=== PATIENT | male | born 1940 | race Caucasian/White ===

== ENCOUNTER → 2017-04-11 | Outpatient (REF) | payer MEDICARE ==
[2017-04-11 14:59] LABS: ALBUMIN 3.7 GM/DL (3.2-5.2); ALBUMIN/GLOBULIN RATIO 1.37 (1.00-1.93); BILIRUBIN,TOTAL 0.4 MG/DL (0.2-1.0); CALCIUM LEVEL 8.9 MG/DL (8.8-10.2); CREATININE FOR GFR 1.36 MG/DL (0.70-1.30); GLOMERULAR FILTRATION RATE 54.4 (>42); POTASSIUM SERUM 3.7 MEQ/L (3.5-5.1); TOTAL PROTEIN 6.4 GM/DL (6.4-8.2)
== END ==
LOC: M SFHCLACO 09:49
PROVIDERS: ATTEND Physician Assistant
DX: E78.2 Mixed hyperlipidemia (principal); E11.9 Type 2 diabetes mellitus without complications; I10 Essential (primary) hypertension

== ENCOUNTER → 2017-10-29 | Outpatient (REF) | payer MEDICARE ==
[2017-10-29 15:18] LABS: ALBUMIN 3.8 GM/DL (3.2-5.2); ALBUMIN/GLOBULIN RATIO 1.23 (1.00-1.93); ALKALINE PHOSPHATASE 78 U/L (45-117); ALT/SGPT 28 U/L (12-78); ANION GAP 6 MEQ/L (8-16); AST/SGOT 14 U/L (7-37); BILIRUBIN,TOTAL 0.5 MG/DL (0.2-1.0); BLOOD UREA NITROGEN 20 MG/DL (7-18); CALCIUM LEVEL 8.9 MG/DL (8.8-10.2); CARBON DIOXIDE LEVEL 31 MEQ/L (21-32); CHLORIDE LEVEL 101 MEQ/L (98-107); CHOLESTEROL LEVEL 116 MG/DL (<200); CHOLESTEROL RISK RATIO 3.052 (<5); CREATININE FOR GFR 1.28 MG/DL (0.70-1.30); GLOMERULAR FILTRATION RATE 58.2 (>42); GLUCOSE, FASTING 113 MG/DL (70-100); HDL CHOLESTEROL 38 MG/DL (>40); LDL CHOLESTEROL 47.4 MG/DL (<100); NON-HDL-C 78 MG/DL; POTASSIUM SERUM 3.6 MEQ/L (3.5-5.1); PSA SCREENING 2.46 NG/ML (< 4.0); SODIUM LEVEL 138 MEQ/L (136-145); TOTAL PROTEIN 6.9 GM/DL (6.4-8.2); TRIGLYCERIDES LEVEL 153 MG/DL (<150)
[2017-10-29 15:25] LABS: ESTIMATED AVERAGE GLUCOSE 160 MG/DL (60-110); HEMOGLOBIN A1c 7.2 %
== END ==
LOC: M SFHCLACO 08:43
DX: Z12.5 Encounter for screening for malignant neoplasm of prostate (principal); I10 Essential (primary) hypertension; E11.9 Type 2 diabetes mellitus without complications; E78.2 Mixed hyperlipidemia
CPT/HCPCS: 80053

== ENCOUNTER → 2021-01-11 | Outpatient (REF) | payer MEDICARE ==
[2021-01-11 14:36] LABS: HEMOGLOBIN A1c 6.5 %
[2021-01-11 14:52] LABS: ALBUMIN 3.5 GM/DL (3.2-5.2); ALT/SGPT 22 U/L (12-78); BILIRUBIN,TOTAL 0.3 MG/DL (0.2-1.0); BLOOD UREA NITROGEN 23 MG/DL (7-18); CALCIUM LEVEL 8.9 MG/DL (8.8-10.2); CARBON DIOXIDE LEVEL 28 MEQ/L (21-32); CHLORIDE LEVEL 111 MEQ/L (98-107); CHOLESTEROL LEVEL 121 MG/DL (<200); CHOLESTEROL RISK RATIO 2.469 (<5); CREATININE FOR GFR 1.05 MG/DL (0.70-1.30); GLOMERULAR FILTRATION RATE > 60.0 (>42); GLUCOSE, FASTING 137 MG/DL (70-100); HDL CHOLESTEROL 49 MG/DL (>40); LDL CHOLESTEROL 43 MG/DL (<100); NON-HDL-C 72 MG/DL; POTASSIUM SERUM 4.6 MEQ/L (3.5-5.1); SODIUM LEVEL 143 MEQ/L (136-145); TOTAL PROTEIN 6.4 GM/DL (6.4-8.2); TRIGLYCERIDES LEVEL 145 MG/DL (<150)
== END ==
LOC: M SFHCADAM 10:34
PROVIDERS: ATTEND Physician Assistant
DX: E78.2 Mixed hyperlipidemia (principal); I10 Essential (primary) hypertension; E11.9 Type 2 diabetes mellitus without complications

== ENCOUNTER 2021-04-25 00:20 | Inpatient (IN) | payer MEDICARE ==
[2021-04-25] VITALS (63 sets, daily range): BP systolic 146–210; BP diastolic 66–123
[~2021-04-25] VITALS: Ht 175.3 cm; Wt 98.5 kg
[2021-04-25] MEDS ORDERED: CLON0.3T PO (00:39)
[2021-04-25] MEDS ORDERED: METO1TAB32 PO ×2 (00:39→06:02)
[2021-04-25] MEDS ORDERED: METF10004 PO (00:39)
[2021-04-25] MEDS ORDERED: HYDR-3911 PO ×2 (00:39→06:02)
[2021-04-25] MEDS ORDERED: LABETALOL 100MG/20ML VIAL IV STA (01:00)
[2021-04-25] MEDS ORDERED: NS 500 ML IV ONE (01:00)
[2021-04-25] MEDS ORDERED: ISOVUE-370 76% 100ML VIAL As Ordered ONE ×2 (01:04→18:17)
[2021-04-25] MEDS ORDERED: ONDANSETRON 4MG/2ML VIAL IV ONE (01:10)
[2021-04-25 01:19] LABS: BASO # 0.1 10^3/uL (0.0-0.2); BASO % 0.9 % (0.0-1.0); EOS % 0.3 % (0.0-3.0); LYMPH # 1.1 10^3/uL (1.5-5.0); LYMPH % 7.5 % (24.0-44.0); MEAN CORPUSCULAR HEMOGLOBIN 25.4 pg (27.0-33.0); MEAN CORPUSCULAR HGB CONC 31.6 g/dl (32.0-36.5); MEAN CORPUSCULAR VOLUME 80.3 fl (80.0-96.0); MONO # 0.3 10^3/uL (0.0-0.8); MONO % 2.4 % (2.0-8.0); NEUTROPHILS # 12.3 10^3/uL (1.5-8.5); NEUTROPHILS % 88.5 % (36.0-66.0); PLATELET COUNT, AUTOMATED 246 10^3/uL (150-450); RED BLOOD COUNT 4.73 10^6/uL (4.30-6.10); WHITE BLOOD COUNT 13.9 10^3/uL (4.0-10.0)
[2021-04-25] MEDS ORDERED: cloNIDine 0.1MG TABLET PO ONE (01:30)
[2021-04-25 01:59] LABS: ALBUMIN 4.2 GM/DL (3.2-5.2); BILIRUBIN,DIRECT 0.2 MG/DL (0.0-0.2); BILIRUBIN,TOTAL 0.5 MG/DL (0.2-1.0); CK-MB VALUE MASS 2.2 NG/ML (<3.6); MB/CK RELATIVE INDEX 2.75 (< OR =4); TOTAL PROTEIN 7.6 GM/DL (6.4-8.2); TROPONIN I 0.04 NG/ML (< 0.10)
--- NOTE | 2021-04-25 02:09 | REPVR ---
PROCEDURE INFORMATION: Exam: CTA Chest With Contrast Exam date and time: 04/25/2021 1:12 AM Age: 80 years old Clinical indication: Pain; Other: Chest; Additional info: Abd pain, HX of taa, R/O dissection TECHNIQUE: Imaging protocol: Computed tomographic angiography of the chest with contrast. 3D rendering (Not supervised by radiologist): MIP and/or 3D reconstructed images were created by the technologist. Radiation optimization: All CT scans at this facility use at least one of these dose optimization techniques: automated exposure control; mA and/or kV adjustment per patient size (includes targeted exams where dose is matched to clinical indication); or iterative reconstruction. Contrast material: ISO; Contrast volume: 100 ml; Contrast route: INTRAVENOUS (IV); COMPARISON: No relevant prior studies available. FINDINGS: Pulmonary arteries: The main pulmonary artery measures 31 mm. No gross central pulmonary embolism is identified. Aorta: The ascending thoracic aorta measures 34 mm. No gross or obvious aortic dissection is identified distal to the mid arch. Artifact and image degradation precludes detailed evaluation of the ascending thoracic aorta. There is some soft plaque with ulcerations in the descending thoracic aorta Thyroid: Heterogeneous thyroid lobes. Lungs: Motion artifact in the lungs with image degradation. Slight pulmonary interstitial prominence with minimal infiltrate in the lateral right lower lobe. Calcified granuloma in the posterolateral right upper lobe. Minimal fibro-atelectatic change and slight interstitial coarsening in the posterior lower lobes. Pleural spaces: Unremarkable. No pneumothorax. No pleural effusion. Heart: Unremarkable. No cardiomegaly. No pericardial effusion. Lymph nodes: Unremarkable. No enlarged lymph nodes. Bones/joints: Unremarkable. No acute fracture. Soft tissues: Lipoma within the left subscapularis muscle. IMPRESSION: 1. Slight pulmonary interstitial prominence with minimal infiltrate in the lateral right lower lobe and minimal fibro-atelectatic change and interstitial coarsening in the posterior lower lobes bilaterally. 2. Otherwise negative CTA chest. There is motion artifact in the lungs with image degradation. No gross central pulmonary embolism is identified. 3. There is irregular soft plaque with ulcerations in the descending thoracic aorta. Motion and/or beam hardening artifact precludes detailed evaluation of the ascending thoracic aorta and subtle aortic dissection is not excluded on this basis although no gross or obvious dissection is seen. Not grossly ruled in does not mean ruled out. Electronically signed by: Markel Babin On 04/25/2021 02:08:51 AM
--- NOTE | 2021-04-25 02:18 | REPVR ---
PROCEDURE INFORMATION: Exam: CTA Abdomen and Pelvis With Contrast Exam date and time: 04/25/2021 1:00 AM Age: 80 years old Clinical indication: Abdominal pain; Generalized; Additional info: Abd pain, distension, HTN, tachycardia, R/O dissection TECHNIQUE: Imaging protocol: Computed tomographic angiography of the abdomen and pelvis with contrast material. 3D rendering (Not supervised by radiologist): MIP and/or 3D reconstructed images were created by the technologist. Radiation optimization: All CT scans at this facility use at least one of these dose optimization techniques: automated exposure control; mA and/or kV adjustment per patient size (includes targeted exams where dose is matched to clinical indication); or iterative reconstruction. Contrast material: ISO; Contrast volume: 100 ml; Contrast route: INTRAVENOUS (IV); COMPARISON: No relevant prior studies available. FINDINGS: Aorta: There is mild calcification of the abdominal aorta with extension into the iliac arteries. No abdominal aortic aneurysm or dissection. Celiac trunk and mesenteric arteries: The celiac artery and branches appear normal. The SMA and branches appear normal. The APARNA is patent. Renal arteries: There is a single patent right renal artery and 3 patent left renal arteries. Right iliac arteries: No occlusion or significant stenosis. Left iliac arteries: No occlusion or significant stenosis. Liver: No mass. Gallbladder and bile ducts: Unremarkable. No calcified stones. No ductal dilation. Pancreas: Unremarkable. No mass. No ductal dilation. Spleen: Unremarkable. No splenomegaly. Adrenal glands: Unremarkable. No mass. Kidneys and ureters: Right renal peripelvic cyst measuring 2.9 x 2.6 x 3.5 cm with a Hounsfield measurement of -9 consistent with a simple cyst. No follow-up imaging is recommended. Stomach and bowel: Small mural lipoma in the proximal duodenal sweep measuring 9 mm. Mobile cecum. Mild stool and gas throughout much of the colon. Sigmoid diverticulosis without diverticulitis. Appendix: A normal appendix is seen. Intraperitoneal space: Unremarkable. No free air. No significant fluid collection. Lymph nodes: Unremarkable. No enlarged lymph nodes. Urinary bladder: There is a De Oliveira catheter in the bladder which is collapsed. No mass. Reproductive: There is moderate enlargement of the prostate. Bones/joints: No acute fracture. No dislocation. Soft tissues: Small bilateral fat filled inguinal hernias. IMPRESSION: 1. Moderate prostatic enlargement with De Oliveira catheter in the bladder. 2. Sigmoid diverticulosis without diverticulitis. 3. Small bilateral fat filled inguinal hernias. 4. Otherwise negative CTA abdomen/pelvis. No abdominal aortic aneurysm or dissection. Electronically signed by: Markel Babin On 04/25/2021 02:18:21 AM
[2021-04-25] MEDS ORDERED: hydrALAZINE 20MG/ML 1ML VIAL (J0360 PER 20MG) IV ONE (03:25)
[2021-04-25] MEDS ORDERED: GLUCAGON INJ 1MG VIAL SC PRN (03:50)
[2021-04-25] MEDS ORDERED: DEXTROSE 50% 50 ML SYRINGE IV PRN (03:50)
[2021-04-25] MEDS ORDERED: GLUCOSE 4GM CHEW TABLET PO PRN (03:50)
[2021-04-25] MEDS ORDERED: ACETAMINOPHEN TAB 650MG DOSE (2X325MG) PO PRN (03:50)
--- NOTE | 2021-04-25 04:18 | HPEPDOC ---
General Date of Admission 04/25/21 Date of Service: Apr 25, 2021 Primary Care Physician: Chelsea Navarro PA-C, LAC Chief Complaint The patient is a 80-year-old male admitted with a reason for visit of Belly Pain/Rectal Pain. Source: Patient History of Present Illness This is a 80-year-old man, who follows with the [facility], with significant history of hypertension, diabetes, muscular dystrophy, gout, generalized anxiety disorder, BPH, hypogonadism, allergic rhinitis, CAD status post cardiac stents, and chronic back pain who presents with complaints of abdominal pain. Patient reports that he has been constipated for 3 to 4 days. When he started having severe generalized abdominal pain today he was afraid he had a fecal impaction and he called EMS to come to the hospital. Upon arrival patient was found to be hypertensive to 257/134. Patient afebrile, not tachycardic or tachypneic - tolerating room air. Of note, initial lab work revealed elevated leukocytosis 13.9, lactic 4. Patient was also found to be with urinary retention 900 mL and Nieves placed. UA pending. Patient reports he felt immense relief from the Nieves placement and abdominal pain receded. He still endorses constipation and given his hypertension -CTA chest and abdomen pelvis were ordered and both nonacute. During examination despite clonidine p.o., hydralazine and labetalol IV patient remains hypertensive at 242/116. He reports that because he felt unwell and based on timing he had not taken his nighttime medications last night. Pt denies lopez, sinus congestion, sore throat, productive cough, sob, palpitations, chest pain, n/v/d, weakness, sensory changes or syncope. Patient does have notable tremors he reports these are at baseline. Patient describes difficulty doing fine motor skills with his hand at baseline such as writing because of his "DTs" when asked if he drinks alcohol he denies he describes his tremors related to his muscular dystrophy as delirium tremens. Patient denies alcohol use. Patient is a former smoker and he quit in . He reports that he does not require any breathing treatments or has cough at baseline. He does endorse hearing aids and he is notably hard of hearing and somewhat poor historian. Patient will be admitted for further evaluation management of presenting concerns Home Medications Scheduled Clonidine HCl (Clonidine HCl) 0.3 Mg Tablet, 0.3 MG PO BID, (Reported) Hydralazine HCl (Hydralazine HCl) Unknown Strength Tablet, Unknown Dose PO QID, (Reported) Metformin HCl (Metformin HCl) 1,000 Mg Tablet, 1,000 MG PO BID, (Reported) Metoprolol Succinate (Metoprolol Succinate) Unknown Strength Tab.er.24h, Unknown Dose PO DAILY, (Reported) Allergies Coded Allergies: No Known Allergies (Unverified , 04/25/21) Past Medical History Medical History hypertension, hemorrhoids, Jaymwzg-Idrmi-Ftqnd muscular atrophy , bradycardia , bilateral carotid artery stenosis, muscular dystrophy, gout, generalized anxiety disorder, diabetes, history of melanoma, BPH, hypogonadism, allergic rhinitis, CAD status post cardiac stents, hard of hearing, diabetic neuropathy, and chronic back pain Surgical History Cardiac stents, lower back surgery 1998 Family History Fatherdeceased 80 years from prostate cancer, motherhypertension Social History * Smoker: former Smoker (Quit 79) Alcohol: Denies Drugs: denies Recent Travel/Sick Contacts: Denies: Recent travel, Recent sick contacts Psychosocial History: Anxiety Patient reports he lives alone. He uses hearing aids but did not bring them with him. He does ambulate with a cane at baseline. He does endorse some foot drop related to his muscular dystrophy. A-FIB/CHADSVASC A-FIB History Current/History of A-Fib/PAF?: No Current PO Anticoag Therapy: No Review of Systems Constitutional: Denies: Chills, Fever, Night Sweats Eyes: Denies: Pain, Vision change ENT: Denies: Head Aches, Ear Pain, Dysphagia Skin: Denies: Rash, Lesions, Breakdown Pulmonary: Denies: Dyspnea, Cough Cardiovascular: Denies: Chest Pain, Palpitations, Orthopnea, Paroxysmal Noc. Dyspnea, Lt Headedness Gastrointestinal: Reports: Abdominal Pain, Constipation; Denies: Nausea, Vomiting, Diarrhea Genitourinary: Denies: Dysuria, Frequency, Incontinence, Retention Hematologic: Denies: Bruising, Bleeding Excessively Musculoskeletal: Denies: Neck Pain, Back Pain, Joint Pain, Muscle Pain, Spasms Neurological: Denies: Weakness, Numbness, Change in speech, Confusion Psych: Reports: Mood Normal; Denies: Depression, Memory Issues Physical Examination General Exam: Positive: Alert, Cooperative, No Acute Distress Eye Exam: Positive: PERRLA, Conjunctiva & lids normal, EOMI; Negative: Sclera icteric ENT Exam: Positive: Atraumatic, Mucous membr. moist/pink, Pharynx Normal, Other ENT (RED CL[place]) Neck Exam: Positive: Supple; Negative: JVD, thyromegaly Chest Exam: Positive: Clear to auscultation, Normal air movement Heart Exam: Positive: Rate Normal, Regular Rhythm, Normal S1, Normal S2; Negative: Murmurs, Rubs Telemetry: Positive: No significant arrhythmia Abdomen Exam: Positive: Normal bowel sounds, Soft; Negative: Tenderness, Hepatospenomegaly Extremity Exam: Positive: Normal pulses; Negative: Clubbing, Cyanosis, Edema Skin Exam: Positive: Nl turgor and temperature; Negative: Breakdown, Lesion Neuro Exam: Positive: Normal Gait, Normal Speech, Cranial Nerves 3-12 NL, Reflexes 2+ Psych Exam: Positive: Mental status NL, Mood NL, Oriented x 3 Other physical findings NIEVES, YELLOW URINE TO BAG Vital Signs Vital Signs Date Time Temp Pulse Resp B/P (MAP) Pulse Ox O2 Delivery O2 Flow Rate FiO2 04/25/21 03:38 245/119 (161) 04/25/21 03:35 81 99 Room Air 04/25/21 01:19 99.6 04/25/21 00:35 18 Laboratory Data Labs 24H Laboratory Tests 2 04/25/21 01:12: Total Bilirubin 0.5, Direct Bilirubin 0.2, Aspartate Amino Transf (AST/SGOT) 14, Alanine Aminotransferase (ALT/SGPT) 18, Alkaline Phosphatase 91, Total Creatine Kinase 80, Creatine Kinase MB 2.2, Creatine Kinase MB Relative Index 2.75, Troponin I 0.04, Total Protein 7.6, Albumin 4.2, Albumin/Globulin Ratio 1.2, Lipase 164 04/25/21 01:14: Immature Granulocyte % (Auto) 0.4, Neutrophils (%) (Auto) 88.5H, Lymphocytes (%) (Auto) 7.5L, Monocytes (%) (Auto) 2.4, Eosinophils (%) (Auto) 0.3, Basophils (%) (Auto) 0.9, Neutrophils # (Auto) 12.3H, Lymphocytes # (Auto) 1.1L, Monocytes # (Auto) 0.3, Eosinophils # (Auto) 0.0, Basophils # (Auto) 0.1, Nucleated Red Blood Cells % (auto) 0.0, Lactic Acid Level 4.0*H 04/25/21 01:23: POC Glucose (Misc Panel) 157H, POC Sodium (Misc Panel) 140, POC Potassium (Misc Panel) 4.0, POC Chloride (Misc Panel) 106, POC Total CO2 (Misc Panel) 21.0L, POC Blood Urea Nitrogen (Misc Panel 19, POC Ionized Calcium (Misc Panel) 4.6, POC Creatinine (Misc Panel) 1.3, POC Hematocrit (Misc Panel) 35.0L 04/25/21 03:33: Urine Color STRAW, Urine Appearance CLEAR, Urine pH 7.0, Urine Specific [place] 1.016, Urine Protein 1+H, Urine Glucose (UA) 1+H, Urine Ketones TRACEH, Urine Blood 1+H, Urine Nitrite NEGATIVE, Urine Bilirubin NEGATIVE, Urine Urobilinogen 0.2, Urine Leukocyte Esterase NEGATIVE, Urine WBC (Auto) 0, Urine RBC (Auto) 10H, Urine Hyaline Casts (Auto) 0, Urine Bacteria (Auto) NEGATIVE, Urine Squamous Epithelial Cells 0, Urine Sperm (Auto) CBC/BMP Laboratory Tests 04/25/21 01:14 Assessment/Plan 1. Hypertensive urgency: In setting of patient having not taken home medications which would be hydralazine, long-acting metoprolol, losartan and clonidine (these are noted in cardiac note from December 2020). -Patient to be monitored on PCU, telemetry -IV labetalol and hydralazine given in ED -Home medications to be reordered, likely possible rebound hypertension without clonidine contributing to elevated BP. -Consider nitroprusside drip pending patient response to resuming patient oral medications. RN made aware regarding plan for BP recheck 1 hour post oral administration and to notify provider blood pressure to determine if need of nitroprusside drip. -A.m. labs -Consider differential, CT abdomen pelvis and CT chest nonacute. CT head will be obtained once 8 hours passes from contrast timing. 2. Leukocytosis and lactic acidosis: Patient afebrile, not tachycardic or tachypneic. CT abdomen pelvis nonacute, CT chest with right lower lobe fibroatelectatic changes but did not describe infectious etiology. Patient does take Metformin. -Will obtain blood cultures. -Metformin on hold -patient has been bolused in ED recheck lactic. -Check procalcitonin -Follow-up UA and labs and consider empiric coverage. 3. Diabetes: -Check A1c. -Metformin on hold given contrast and lactic acidosis. -Monitor patient blood glucose ACHS. -Sliding scale insulin. -A.m. labs. 4. Urinary retention patient with BPH: Patient found with urinary retention 900 mL. Responded well to Nieves insertion. -Continue home hytrin. -Continue Nieves for now -UA pending. -Consider urological consult. 5. Hemorrhoids and constipation: -Monitor I's and O's -Plan for bowel regimen Colace, MiraLAX and as needed Senokot -Patient reports that he has had issues with suppositories and requests no suppositories. -When asked regarding rectal creams as he did describe some rectal discomfort he declined. 6. Diverticulosis without diverticulitis: Patient reports his abdominal pain resolved after Nieves placement. CT abdomen pelvis without evidence of diverticulitis. Continue monitoring. 7. Diabetic neuropathy, Gdmelfl-Anrhr-Wffwc muscular atrophy and muscular dystrophy: Fall precautions. 8. CAD with left bundle branch block: In setting of hypertensive urgency. Echo completed December 2020 showed EF 55 to 65% with mild diastolic dysfunction. Records in [facility] from [facility] -Telemetry monitoring -continue Asa, Plavix, atorvastatin. 9. NORBERTO: Amitriptyline held given QTC. Recheck EKG and consider resuming accordingly. 10. CT finding: Aortic plaque: Outlines as nonacute, but did not rule in or rule out subtotal aortic dissection. Lower suspicion given patient clinical exam. Continue to monitor and consider further imaging should patient clinical presentation change. 11. QT prolongation: QTC 543. Avoid QT prolonging agents as able. Monitor patient on telemetry repeat EKG later today. DVT prophylaxis: SCDs CODE STATUS: DNR/DNI. Patient confirms with [facility] Disposition planning: Home once blood pressure stable Plan / VTE VTE Prophylaxis Ordered?: Yes ANISH VELASCO NP Apr 25, 2021 04:12
[2021-04-25 05:00] LABS: RSV AMPLIFICATION NEGATIVE (NEGATIVE)
[2021-04-25 05:01] LABS: HEMOGLOBIN A1c 6.8 %
[2021-04-25] MEDS ORDERED: METOPROLOL SUCC *XL* 25MG TAB (TopROL *XL*) PO SCH (05:05)
[2021-04-25] MEDS ORDERED: LOSARTAN 50MG TABLET PO SCH (05:05)
[2021-04-25] MEDS ORDERED: SENNA 8.6 MG TAB (SENOKOT) PO PRN (05:05)
--- NOTE | 2021-04-25 05:14 | ECGEPIP ---
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
[2021-04-25 05:20] LABS: CHOLESTEROL RISK RATIO 2.706 (<5); MAGNESIUM LEVEL 1.4 MG/DL (1.8-2.4); THYROID STIMULATING HORMONE 0.525 uIU/ML (0.358-3.740)
[2021-04-25] MEDS: **hydrALAZINE** 50 MG TAB PO SCH ×3 (06:01→21:26)
[2021-04-25] MEDS ORDERED: CLOP75TA2 PO (06:02)
[2021-04-25] MEDS ORDERED: FISH1000 PO (06:02)
[2021-04-25] MEDS ORDERED: HYDR-4517 PO (06:02)
[2021-04-25] MEDS ORDERED: LOSA100T50 PO (06:02)
[2021-04-25] MEDS ORDERED: ASPI-161 PO (06:02)
[2021-04-25] MEDS ORDERED: CITA40TA6 PO (06:02)
[2021-04-25] MEDS ORDERED: VITMTA PO (06:02)
[2021-04-25] MEDS ORDERED: ATOR40TA75 PO (06:02)
[2021-04-25] MEDS ORDERED: ALLO300T2 PO (06:02)
[2021-04-25] MEDS ORDERED: TERA10CA3 PO (06:02)
[2021-04-25] MEDS ORDERED: AMIT50TA PO (06:02)
[2021-04-25] MEDS ORDERED: HOME MED LIST COMPLETE! XX SCH (06:05)
[2021-04-25] MEDS: TERAZOSIN 5MG CAPSULE PO SCH ×2 (06:09→21:31)
[2021-04-25] MEDS: HumaLOG INSULIN (NovoLOG) PER UNIT SC SCH ×3 (07:30→17:25)
[2021-04-25] MEDS: niCARdipine IV 40 MG in IV 1 EA IV SCH ×3 (07:37→22:45)
[2021-04-25] MEDS: MAG SULF 1GM/100ML (MAG RUN) 1 GM in IV 1 EA IV SCH ×2 (08:12→09:18)
[2021-04-25] MEDS ORDERED: MIRALAX *UNIT DOSE* 17GM PACKET PO SCH (09:00)
[2021-04-25] MEDS ORDERED: cloNIDine 0.1MG TABLET PO SCH (09:00)
[2021-04-25] MEDS: ASPIRIN 81 MG CHEW TABLET PO SCH (09:18)
[2021-04-25] MEDS: DOCUSATE SODIUM 100MG CAPSULE PO SCH ×2 (09:19→21:28)
[2021-04-25] MEDS: CLOPIDOGREL 75 MG TAB PO SCH (09:19)
--- NOTE | 2021-04-25 09:33 | ECGEPIP ---
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 Decreased heart rate and LEFT BUNDLE BRANCH BLOCK no longer present compared with 04/25/2021. Electronically Signed on 04-25-2021 9:33:19 EDT by Gunner Higginbotham
[2021-04-25] MEDS ORDERED: FLEET ENEMA PR ONE (12:15)
[2021-04-25] MEDS: **hydrALAZINE HCL** 25 MG TAB PO SCH ×2 (12:42→17:16)
[2021-04-25] MEDS ORDERED: CALCIUM CARBONATE 500 MG CHEW U/D PO ONE (13:00)
--- NOTE | 2021-04-25 13:16 | REP ---
INDICATION: abd pain. COMPARISON: None. TECHNIQUE: KUB: 2 portably obtained views presented. FINDINGS: Supine views the abdomen demonstrate formed stool distending the rectum. There is air in the stomach and multiple loops of air-filled mildly prominent small bowel are seen in the central abdomen. There is air in the distal transverse colon and proximal descending colon. Psoas margins are intact. No mass or organomegaly is seen. IMPRESSION: Suggestive of fecal impaction with air filled rectum and distended loops of small and large bowel in the upper abdomen. Otherwise negative. <Electronically signed by Caio Jones > 04/25/21 [id number]
[2021-04-25] MEDS ORDERED: PROCHLORPERAZINE 5 MG TAB (S0183) PO ONE (15:00)
[2021-04-25] MEDS ORDERED: BISACODYL 10 MG SUPP PR ONE (16:30)
[2021-04-25] MEDS ORDERED: MAGNESIUM OXIDE 400MG TAB (MAG-OX) PO ONE (16:30)
[2021-04-25] MEDS ORDERED: METOPROLOL TART 25 MG TABLET PO SCH (18:00)
[2021-04-25] MEDS: NS 1,000 ML IV SCH (18:08)
[2021-04-25 18:26] LABS: ALBUMIN 3.8 GM/DL (3.2-5.2); BILIRUBIN,TOTAL 0.8 MG/DL (0.2-1.0); CALCIUM LEVEL 9.4 MG/DL (8.8-10.2); CREATININE FOR GFR 1.51 MG/DL (0.70-1.30); GLOMERULAR FILTRATION RATE 47.7 (>42); POTASSIUM SERUM 3.2 MEQ/L (3.5-5.1); TOTAL PROTEIN 7.1 GM/DL (6.4-8.2)
[2021-04-25] MEDS ORDERED: SODIUM CHLORIDE 0.9% 1000ML IV ONE (18:30)
--- NOTE | 2021-04-25 18:50 | IPNPDOC ---
Subjective Date Seen The patient was seen on 04/25/21. Subjective Chief Complaint/HPI Patient was seen and examined at bedside this morning. He he had complaints of abdominal pain which he attributed to being constipated as this is happened to him in the past. He also had associated nausea and vomiting. He denies chest pain, palpitations, headaches, blurry vision, and focal deficits. Objective Physical Examination Heart Exam: Negative: Murmurs, Rubs Other physical findings General: Lying in bed, no acute distress Head/Neck/Throat: Trachea midline, mucous membranes moist Eyes: Sclera anicteric, no erythema or discharge appreciated bilaterally Thorax: Normal respiratory effort on room air, lungs clear to auscultation bilaterally, no wheezes/rales/rhonchi Cardiovascular: Tachycardic, regular rhythm, normal S1, S2 Abdomen: Bowel sounds present, mildly distended, tenderness reported diffusely Genitourinary: No CVA tenderness, no Britt in place Musculoskeletal: Moving all extremities, no edema Skin: Warm, dry Neurologic: AAOx3, speech fluent and goal-directed, no focal deficits, grossly intact Assessment /Plan Assessment #Hypertensive emergency -BP greater than 185/105 and patient has acute kidney injury on repeat labs. -Continue with IV nicardipine with goal to reduce SBP no more than 25% in first 3-4 hours, and maintain SBP at 160. -We will resume ambulatory antihypertensive medications except for losartan due to acute kidney injury, in order to titrate off nicardipine drip # #Abnormal CTA of the chest -CT scan of the chest done this morning noted in the impression that patient may have a subtle and possible ascending thoracic aorta dissection that could not be excluded. This was reviewed with the radiologist and there is low suspicion however repeat CT angio or a ZO would be needed. These findings were discussed with the patient and he repeat CT angiography was proposed. He was explained that he does have acute kidney injury and the risk of worsening of his kidney function was positive with repeat CT angiography that would require more time. He was explained that it may also lead to the extent of possibly requiring dialysis. He is willing to accept his risk therefore repeat CT angiography is already been ordered to rule out dissection. #Abdominal pain -CT angiography of the abdomen was negative. Suspect this is secondary to fecal impaction in the setting of his chronic opioid use. Optimize bowel regimen -Surgery team was consulted #Prolonged qtc -repeat ekg in am -avoid qtc prolonging meds #Urinary retention -possibly 2/2 to constipation. He did report some relief in his abdominal pain following a Britt -Maintain britt for now. #Elevated leukocytosis and lactic acid -This is likely reactive to the patient's abdominal pain leading to nausea and vomiting. He was also taking Metformin which can lead to elevate lactic acid. -He remains afebrile, and procalcitonin is within normal limits. We will continue to follow off antibiotics and manage with IV fluids. -Avoid QTC prolonging antiemetics #Diabetes -Hold Metformin. Continue sliding scale, hypoglycemic protocol, and Accu-Cheks every 6 hrs #Depression -Continue with citalopram #BPH -Continue with Terazosin #DVT ppx -heparin subq Plan/VTE VTE Prophylaxis Ordered?: Yes VS, I&O, 24H, Fishbone Vital Signs/I&O Vital Signs Date Time Temp Pulse Resp B/P (MAP) Pulse Ox O2 Delivery O2 Flow Rate FiO2 04/25/21 13:45 95 160/75 (103) 98 Room Air 04/25/21 12:30 98.9 20 I&O- Last 24 Hours up to 6 AM 04/25/21 06:00 Intake Total 500 ml Output Total 700 ml Balance -200 ml Laboratory Data 24H LABS Laboratory Tests 2 04/25/21 01:12: Total Bilirubin 0.5, Direct Bilirubin 0.2, Aspartate Amino Transf (AST/SGOT) 14, Alanine Aminotransferase (ALT/SGPT) 18, Alkaline Phosphatase 91, Total Creatine Kinase 80, Creatine Kinase MB 2.2, Creatine Kinase MB Relative Index 2.75, Troponin I 0.04, Total Protein 7.6, Albumin 4.2, Albumin/Globulin Ratio 1.2, Lipase 164 04/25/21 01:14: Immature Granulocyte % (Auto) 0.4, Neutrophils (%) (Auto) 88.5H, Lymphocytes (%) (Auto) 7.5L, Monocytes (%) (Auto) 2.4, Eosinophils (%) (Auto) 0.3, Basophils (%) (Auto) 0.9, Neutrophils # (Auto) 12.3H, Lymphocytes # (Auto) 1.1L, Monocytes # (Auto) 0.3, Eosinophils # (Auto) 0.0, Basophils # (Auto) 0.1, Nucleated Red Blood Cells % (auto) 0.0, Lactic Acid Level 4.0*H 04/25/21 01:23: POC Glucose (Misc Panel) 157H, POC Sodium (Misc Panel) 140, POC Potassium (Misc Panel) 4.0, POC Chloride (Misc Panel) 106, POC Total CO2 (Misc Panel) 21.0L, POC Blood Urea Nitrogen (Misc Panel 19, POC Ionized Calcium (Misc Panel) 4.6, POC Creatinine (Misc Panel) 1.3, POC Hematocrit (Misc Panel) 35.0L 04/25/21 03:33: Urine Color STRAW, Urine Appearance CLEAR, Urine pH 7.0, Urine Specific [place] 1.016, Urine Protein 1+H, Urine Glucose (UA) 1+H, Urine Ketones TRACEH, Urine Blood 1+H, Urine Nitrite NEGATIVE, Urine Bilirubin NEGATIVE, Urine Urobilinogen 0.2, Urine Leukocyte Esterase NEGATIVE, Urine WBC (Auto) 0, Urine RBC (Auto) 10H, Urine Hyaline Casts (Auto) 0, Urine Bacteria (Auto) NEGATIVE, Urine Squamous Epithelial Cells 0, Urine Sperm (Auto) 04/25/21 04:13: Coronavirus (COVID-19)(PCR) NEGATIVE, Influenza Type A (RT-PCR) NEGATIVE, Influenza Type B (RT-PCR) NEGATIVE, Respiratory Syncytial Virus (PCR) NEGATIVE 04/25/21 04:32: Estimated Mean Plasma Glucose 148H, Hemoglobin A1c 6.8, Magnesium Level 1.4L, JJ-Opd-X-Type Natriuretic Peptide 1001H, Triglycerides Level 100, Total Cholesterol 157, LDL Cholesterol 79, Non-HDL Cholesterol (LDL + VLDL) 99, Total HDL Cholesterol 58, Cholesterol/HDL Ratio 2.706, Procalcitonin <0.05, Thyroid Stimulating Hormone (TSH) 0.525 04/25/21 06:49: Lactic Acid Followup at 4 Hours 2.6*H 04/25/21 07:34: Bedside Glucose (Misc Panel) 177H 04/25/21 12:36: Bedside Glucose (Misc Panel) 176H CBC/BMP Laboratory Tests 04/25/21 01:14 Microbiology Microbiology 04/25/21 Blood Culture, Received Pending NINA HENRY M.D. Apr 25, 2021 15:45
--- NOTE | 2021-04-25 18:56 | REPVR ---
PROCEDURE INFORMATION: Exam: CTA Chest With Contrast Exam date and time: 04/25/2021 6:26 PM Age: 80 years old Clinical indication: Other: Follow up on subtle dissectioned mentioned in 1st scan TECHNIQUE: Imaging protocol: Computed tomographic angiography of the chest with contrast. 3D rendering (Not supervised by radiologist): MIP and/or 3D reconstructed images were created by the technologist. Radiation optimization: All CT scans at this facility use at least one of these dose optimization techniques: automated exposure control; mA and/or kV adjustment per patient size (includes targeted exams where dose is matched to clinical indication); or iterative reconstruction. Contrast material: ISOVUE 370; Contrast volume: 100 ml; Contrast route: INTRAVENOUS (IV); COMPARISON: CT ANGIO CHEST 04/25/2021 1:39 AM FINDINGS: Pulmonary arteries: There are no pulmonary emboli. Aorta: Motion artifact again redemonstrated at the aortic root. No definite dissection visualized. Remaining thoracic aorta demonstrates mild atherosclerotic changes. Ulcerated clot demonstrated in the distal descending thoracic aorta. Findings are stable in comparison to the prior earlier examination. Thyroid: Heterogeneous appearance of the left lobe of the thyroid gland may signify the presence of nodularity. No aggressive features demonstrated. No follow-up suggested according to ACR guidelines. Lungs: Small calcified granuloma right upper lobe. Stable appearance of a coarse parenchymal infiltrate right lower lobe. Bibasilar atelectasis. Pleural spaces: Unremarkable. No pneumothorax. No pleural effusion. Heart: There is mild atherosclerotic calcification of the coronary arteries. Lymph nodes: Unremarkable. No enlarged lymph nodes. Bones/joints: The spine demonstrates mild degenerative changes. Soft tissues: Lipoma in the left subscapularis muscle. IMPRESSION: 1. Motion artifact again redemonstrated at the aortic root. No definite dissection visualized. Remaining thoracic aorta demonstrates mild atherosclerotic changes. Ulcerated clot demonstrated in the distal descending thoracic aorta. Findings are stable in comparison to the prior earlier examination. 2. There are no pulmonary emboli. 3. Heterogeneous appearance of the left lobe of the thyroid gland may signify the presence of nodularity. No aggressive features demonstrated. No follow-up suggested according to ACR guidelines. 4. Stable parenchymal infiltrates as described above. Electronically signed by: Migel Amin On 04/25/2021 18:56:10 PM
--- NOTE | 2021-04-25 19:06 | REPVR ---
PROCEDURE INFORMATION: Exam: CT Abdomen With Contrast Exam date and time: 04/25/2021 6:26 PM Age: 80 years old Clinical indication: Abdominal pain; Additional info: Abdominal pain (extension of ct-chest with contrast) TECHNIQUE: Imaging protocol: Computed tomography images of the abdomen with intravenous contrast. 3D rendering (Not supervised by radiologist): MIP and/or 3D reconstructed images were created by the technologist. Radiation optimization: All CT scans at this facility use at least one of these dose optimization techniques: automated exposure control; mA and/or kV adjustment per patient size (includes targeted exams where dose is matched to clinical indication); or iterative reconstruction. Contrast material: ISOVUE 370; Contrast volume: 100 ml; Contrast route: INTRAVENOUS (IV); COMPARISON: CT ANGIO ABD/PEL 04/25/2021 1:39 AM FINDINGS: Mediastinal space: Diffuse thickening of the wall of the distal esophagus. Clinical correlation to exclude changes related to reflux esophagitis versus neoplasm suggested. Liver: There is a diffuse decrease in hepatic parenchymal density, consistent with steatosis. Gallbladder and bile ducts: Vicarious excretion of contrast media within the lumen of the gallbladder. No gallstones or gallbladder wall thickening demonstrated. Pancreas: There is diffuse pancreatic atrophy. Spleen: Normal. No splenomegaly. Adrenals: Normal. No mass. Kidneys and ureters: Bilateral simple renal cysts measure up to 3.4 cm. No follow-up suggested. Stomach and bowel: There is gastric distention with retained secretions. Clinical correlation to exclude gastroparesis or gastric outlet obstruction suggested. Mildly dilated small bowel loops in the upper abdomen may indicate an ileus. Findings not typical for small bowel obstruction at this juncture. Thickened wall of the 2nd and 3rd portions of the duodenum may reflect duodenitis. Clinical correlation to exclude other etiologies including neoplasm suggested. Intraperitoneal space: Unremarkable. No free air. No significant fluid collection. Lymph nodes: Unremarkable. No enlarged lymph nodes. Vasculature: The aortoiliac vessels demonstrate mild atherosclerotic calcification. Mild atherosclerotic changes at the origin of the superior mesenteric artery and celiac artery without significant stenosis. Bones/joints: Mild central spinal stenosis L3-L4 and L4-L5. Soft tissues: There is a small umbilical hernia. There is no evidence of incarceration. IMPRESSION: 1. Diffuse thickening of the wall of the distal esophagus. Clinical correlation to exclude changes related to reflux esophagitis versus neoplasm suggested. 2. There is a diffuse decrease in hepatic parenchymal density, consistent with steatosis. 3. Vicarious excretion of contrast media within the lumen of the gallbladder. No gallstones or gallbladder wall thickening demonstrated. 4. There is gastric distention with retained secretions. Clinical correlation to exclude gastroparesis or gastric outlet obstruction suggested. 5. There is diffuse pancreatic atrophy. 6. Mild atherosclerotic changes at the origin of the superior mesenteric artery and celiac artery without significant stenosis. 7. Mildly dilated small bowel loops in the upper abdomen may indicate an ileus. Findings not typical for small bowel obstruction at this juncture. 8. Thickened wall of the 2nd and 3rd portions of the duodenum may reflect duodenitis. Clinical correlation to exclude other etiologies including neoplasm suggested. COMMENTS: Consistent with the [employer]'s Incidental Findings Committee white paper (J Am Ruddy Radiol 2018): Any incidental renal lesion less than 1 cm or classified as too small to characterize, or any incidental cystic renal lesion characterized as simple-appearing, is likely benign. No follow-up imaging is recommended for these lesions per consensus recommendations based on imaging criteria. Electronically signed by: Migel Amin On 04/25/2021 19:05:46 PM
[2021-04-25 19:44] LABS: MAGNESIUM LEVEL 1.6 MG/DL (1.8-2.4); PHOSPHORUS LEVEL 2.5 MG/DL (2.5-4.9); TROPONIN I 0.04 NG/ML (< 0.10)
[2021-04-25] MEDS: KCL 10MEQ/100ML SWI (KRUN) 10 MEQ in IV 1 EA IV SCH ×4 (19:48→22:48)
[2021-04-25] MEDS: cefTRIAXone SOD 1 GM in D5W MINI-BAG PLUS 50 ML IV SCH (20:41)
[2021-04-25] MEDS ORDERED: AMITRIPTYLINE 50 MG TAB PO SCH (21:00)
[2021-04-25] MEDS ORDERED: TERAZOSIN 5MG CAPSULE PO SCH (21:00)
[2021-04-25] MEDS ORDERED: HumaLOG INSULIN (NovoLOG) PER UNIT SC SCH (21:00)
[2021-04-25] MEDS ORDERED: MAG SULF 1GM/100ML (MAG RUN) 1 GM in IV 1 EA IV ONE (21:10)
[2021-04-25] MEDS: cloNIDine 0.1MG TABLET PO SCH (21:27)
[2021-04-25] MEDS: ATORVASTATIN 20 MG TAB PO SCH (21:28)
[2021-04-25] MEDS: MIRALAX *UNIT DOSE* 17GM PACKET PO SCH (21:29)
[2021-04-25] MEDS: PANTOPRAZOLE 40MG VIAL (C9113 PER 1) IV SCH (21:30)
[2021-04-25] MEDS: SENNA 8.6 MG TAB (SENOKOT) PO SCH (21:30)
[2021-04-25] MEDS: HEPARIN SOD (PORCINE) 5000UNITS/ML 1ML VIAL/SYRINGE SQ SCH (21:30)
--- NOTE | 2021-04-25 21:30 | REPVR ---
PROCEDURE INFORMATION: Exam: XR Chest Exam date and time: 04/25/2021 9:08 PM Age: 80 years old Clinical indication: Device placement; Ng tube; Additional info: S/P ng placement TECHNIQUE: Imaging protocol: XR of the chest. Views: 1 view. COMPARISON: CT ANGIO CHEST 04/25/2021 6:14 PM FINDINGS: Tubes, catheters and devices: NG tube tip located in the left upper quadrant consistent with an intragastric location. Lungs: Coarse parenchymal infiltrate right lung base near the costophrenic angle consistent with findings on prior CT. Pleural spaces: Unremarkable. Heart/Mediastinum: Unremarkable. No cardiomegaly. Bones/joints: Unremarkable. IMPRESSION: No acute findings. Electronically signed by: Miegl Amin On 04/25/2021 21:29:42 PM
[2021-04-25] MEDS: metroNIDAZOLE 500 MG in IV 1 EA IV SCH (22:43)
[2021-04-25] MEDS: THIAMINE INJection 500 MG in NS 100 ML IV SCH (23:47)
[2021-04-25] MEDS: METOPROLOL TART 50 MG TAB PO SCH (23:47)
[2021-04-26] VITALS (77 sets, daily range): BP systolic 139–177; BP diastolic 58–82
[2021-04-26] MEDS ORDERED: diphenhydrAMINE 50MG/ML VIAL (J1200) IV ONE (01:10)
[2021-04-26] MEDS: NS 1,000 ML IV SCH ×3 (01:32→17:18)
[2021-04-26] MEDS: niCARdipine IV 40 MG in IV 1 EA IV SCH ×2 (02:19→05:23)
[2021-04-26] MEDS: MORPHINE 4 MG/ML 1ML VIAL/SYRINGE (J2270) IV PRN ×2 (03:30→08:37)
[2021-04-26 05:19] LABS: BASO % 0.1 % (0.0-1.0); HEMATOCRIT 30.1 % (42.0-52.0); LYMPH # 0.6 10^3/uL (1.5-5.0); LYMPH % 4.4 % (24.0-44.0); MEAN CORPUSCULAR HEMOGLOBIN 25.5 pg (27.0-33.0); MEAN CORPUSCULAR HGB CONC 32.9 g/dl (32.0-36.5); MEAN CORPUSCULAR VOLUME 77.6 fl (80.0-96.0); MONO # 0.6 10^3/uL (0.0-0.8); MONO % 4.7 % (2.0-8.0); NEUTROPHILS # 12.3 10^3/uL (1.5-8.5); NEUTROPHILS % 90.3 % (36.0-66.0); PLATELET COUNT, AUTOMATED 219 10^3/uL (150-450); RED BLOOD COUNT 3.88 10^6/uL (4.30-6.10); WHITE BLOOD COUNT 13.6 10^3/uL (4.0-10.0)
[2021-04-26] MEDS: metroNIDAZOLE 500 MG in IV 1 EA IV SCH ×3 (05:21→22:03)
[2021-04-26] MEDS: HumaLOG INSULIN (NovoLOG) PER UNIT SC SCH ×4 (05:23→17:26)
[2021-04-26] MEDS: METOPROLOL TART 50 MG TAB PO SCH ×3 (05:23→17:17)
[2021-04-26] MEDS: HEPARIN SOD (PORCINE) 5000UNITS/ML 1ML VIAL/SYRINGE SQ SCH ×3 (05:23→22:05)
[2021-04-26 05:24] LABS: HEMOGLOBIN 9.9 g/dl (13.5-17.5)
[2021-04-26 05:41] LABS: CALCIUM LEVEL 8.4 MG/DL (8.8-10.2); CREATININE FOR GFR 1.31 MG/DL (0.70-1.30); GLOMERULAR FILTRATION RATE 56.2 (>42); MAGNESIUM LEVEL 1.8 MG/DL (1.8-2.4); PHOSPHORUS LEVEL 2.3 MG/DL (2.5-4.9); POTASSIUM SERUM 3.4 MEQ/L (3.5-5.1)
[2021-04-26] MEDS ORDERED: MAG SULF 1GM/100ML (MAG RUN) 1 GM in IV 1 EA IV ONE (07:00)
[2021-04-26] MEDS: THIAMINE INJection 500 MG in NS 100 ML IV SCH ×2 (07:24→18:27)
[2021-04-26] MEDS: KCL 10MEQ/100ML SWI (KRUN) 10 MEQ in IV 1 EA IV SCH ×4 (07:54→11:32)
[2021-04-26] MEDS: DOCUSATE SODIUM 100MG CAPSULE PO SCH ×2 (08:21→20:44)
[2021-04-26] MEDS: PANTOPRAZOLE 40MG VIAL (C9113 PER 1) IV SCH ×2 (08:21→20:43)
[2021-04-26] MEDS: CLOPIDOGREL 75 MG TAB PO SCH (08:22)
[2021-04-26] MEDS: cloNIDine 0.1MG TABLET PO SCH ×3 (08:22→20:45)
[2021-04-26] MEDS: ASPIRIN 81 MG CHEW TABLET PO SCH (08:22)
[2021-04-26] MEDS: **hydrALAZINE** 50 MG TAB PO SCH ×4 (08:22→20:46)
[2021-04-26] MEDS: MIRALAX *UNIT DOSE* 17GM PACKET PO SCH ×2 (08:23→20:52)
[2021-04-26] MEDS ORDERED: NIFEdipine 30 MG XL TAB PO SCH (09:00)
--- NOTE | 2021-04-26 09:25 | CR.PDOC ---
General Date of Consultation: Apr 26, 2021 Attending Physician: KATE COY MD Consultation General surgery. Dr. Coy HISTORY OF PRESENT ILLNESS: The patient is a 80-year-old male who was admitted 04/25/2021 with hypertensive urgency and abdominal pain. The patient had reported he had been constipated for the previous 3 to 4 days. He started having generalized abdominal pain and called EMS to come to the hospital. The patient was also noted to have urinary retention in the emergency department and De Oliveira catheter was placed. Abdominal pain improved after De Oliveira placement but the patient still reported constipation. The patient was treated with Colace, MiraLAX, Senokot, and had 9 bowel movements recorded 04/25. CT abdomen indicated thickening of the distal esophagus, gastric distention, possible ileus. The patient was also having vomiting, NG tube was placed. The patient reports improvement in abdominal pain and distention this morning. General surgery was consulted for abdominal pain. Currently, NG tube is in place. The patient denies nausea or vomiting. 9 bowel movements recorded yesterday. Denies abdominal pain currently. ALLERGIES: Please see below. HOME MEDICATIONS: Please see below. PAST MEDICAL HISTORY: Hypertension Diabetes Muscular dystrophy Gout Anxiety BPH Hypogonadism Allergic rhinitis CAD/cardiac stents Chronic back pain Bilateral carotid artery stenosis Decreased hearing Peripheral neuropathy PAST SURGICAL HISTORY: Low back surgery 1999 Cardiac catheterization FAMILY HISTORY: Father: Prostate cancer Mother: Hypertension SOCIAL HISTORY: Former smoker REVIEW OF SYSTEMS: As noted in HPI otherwise 10 point review of systems negative. PHYSICAL EXAMINATION: VITAL SIGNS: Please see below. GENERAL APPEARANCE: Resting in bed comfortably, no acute distress HEENT: NG tube in place RESPIRATORY: Clear to auscultation CARDIOVASCULAR: S1-S2 regular rate rhythm. ABDOMEN: Abdomen is soft, nontender, nondistended this morning, bowel sounds present. EXTREMITIES: No edema LABORATORY DATA: WBC this morning 13.6, compared with 13.9 yesterday. Hemoglobin 9.9 Serum creatinine 1.31 with GFR 56.2. Follow-up lactic acid was 1.6, 2.[address] abdomen IMPRESSION: 1. Diffuse thickening of the wall of the distal esophagus. Clinical correlation to exclude changes related to reflux esophagitis versus neoplasm suggested. 2. There is a diffuse decrease in hepatic parenchymal density, consistent with steatosis. 3. Vicarious excretion of contrast media within the lumen of the gallbladder. No gallstones or gallbladder wall thickening demonstrated. 4. There is gastric distention with retained secretions. Clinical correlation to exclude gastroparesis or gastric outlet obstruction suggested. 5. There is diffuse pancreatic atrophy. 6. Mild atherosclerotic changes at the origin of the superior mesenteric artery and celiac artery without significant stenosis. 7. Mildly dilated small bowel loops in the upper abdomen may indicate an ileus. Findings not typical for small bowel obstruction at this juncture. 8. Thickened wall of the 2nd and 3rd portions of the duodenum may reflect duodenitis. Clinical correlation to exclude other etiologies including neoplasm suggested. ASSESSMENT/PLAN: Abdominal pain. The patient is reviewed and examined as per Dr. Coy this morning. Likely secondary to constipation. The patient did have 9 bowel movements yesterday and reports improvement. Abdomen this morning is soft and nondistended. Would recommend to continue with bowel regimen. Nausea/vomiting CT indicated possible ileus. NG tube in place. The patient reports improvement in abdominal pain/distention. Denies nausea currently. Plan to keep NG tube for today. Continue to monitor. Esophagitis/gastritis/duodenitis suggested on CT. Currently Protonix 40 mg IV twice daily. Would recommend to continue with PPI. Plan for outpatient endoscopy. Vital Signs/I&O Vital Signs Date Time Temp Pulse Resp B/P (MAP) Pulse Ox O2 Delivery O2 Flow Rate FiO2 04/26/21 08:37 18 Room Air 04/26/21 08:23 158/74 04/26/21 06:30 95 94 04/26/21 04:00 98.4 I&O- Last 24 Hours up to 6 AM 04/26/21 05:59 Intake Total 2214 ml Output Total 3950 ml Balance -1736 ml Laboratory Data Labs 24H Laboratory Tests 2 04/25/21 12:36: Bedside Glucose (Misc Panel) 176H 04/25/21 17:25: Bedside Glucose (Misc Panel) 179H 04/25/21 17:35: Lactic Acid Level 3.7*H 04/25/21 17:36: Anion Gap 13, Glomerular Filtration Rate 47.7, Calcium Level 9.4, Phosphorus Level 2.5, Magnesium Level 1.6L, Total Bilirubin 0.8#, Aspartate Amino Transf (A ST/SGOT) 15, Alanine Aminotransferase (ALT/SGPT) 15, Alkaline Phosphatase 83, Troponin I 0.04, Total Protein 7.1, Albumin 3.8, Albumin/Globulin Ratio 1.2 04/25/21 21:08: Lactic Acid Level 2.3*H, Troponin I 0.04 04/25/21 21:38: Bedside Glucose (Misc Panel) 231H 04/25/21 23:51: 04/26/21 04:55: Immature Granulocyte % (Auto) 0.5, Neutrophils (%) (Auto) 90.3H, Lymphocytes (%) (Auto) 4.4L, Monocytes (%) (Auto) 4.7, Eosinophils (%) (Auto) 0.0, Basophils (%) (Auto) 0.1, Neutrophils # (Auto) 12.3H, Lymphocytes # (Auto) 0.6L, Monocytes # (Auto) 0.6, Eosinophils # (Auto) 0.0, Basophils # (Auto) 0.0, Nucleated Red Blood Cells % (auto) 0.0, Anion Gap 10, Glomerular Filtration Rate 56.2, Lactic Acid Followup at 4 Hours 1.6, Calcium Level 8.4L, Phosphorus Level 2.3L, Magnesium Level 1.8 04/26/21 05:20: Bedside Glucose (Misc Panel) 196H CBC/BMP Laboratory Tests 04/25/21 17:36 04/26/21 04:55 Microbiology Microbiology 04/25/21 Blood Culture - Preliminary, Resulted No growth after 24 hours . All specim... Allergies Coded Allergies: No Known Allergies (Unverified , 04/25/21) Home Medications Scheduled Amitriptyline HCl (Amitriptyline HCl) 50 Mg Tablet, 50 MG PO QHS, (Reported) Aspirin (Aspirin EC) 81 Mg Tablet.dr, 81 MG PO QHS, (Reported) Atorvastatin Calcium (Atorvastatin Calcium) 40 Mg Tablet, 40 MG PO QPM, (Reported) TAKES AT DINNERTIME Citalopram Hydrobromide (Citalopram HBr) 40 Mg Tablet, 40 MG PO DAILY, (Reported) Clonidine HCl (Clonidine HCl) 0.3 Mg Tablet, 0.3 MG PO BID, (Reported) Clopidogrel Bisulfate (Clopidogrel) 75 Mg Tablet, 75 MG PO DAILY, (Reported) Hydralazine HCl (Hydralazine HCl) 50 Mg Tablet, 50 MG PO QID, (Reported) Losartan Potassium (Losartan Potassium) 100 Mg Tablet, 100 MG PO DAILY, (Reported) Metformin HCl (Metformin HCl) 1,000 Mg Tablet, 1,000 MG PO BID, (Reported) Metoprolol Succinate (Metoprolol Succinate) 25 Mg Tab.er.24h, 25 MG PO DAILY, (Reported) Multivitamins (Thera M Plus Tablet) 1 Each Tablet, 1 TAB PO DAILY, (Reported) [place]-3 Fatty Acids/Fish Oil (Fish Oil 1,000 mg Capsule) 1 Each Capsule, 1,000 MG PO DAILY, (Reported) Terazosin Hcl (Terazosin HCl) 10 Mg Capsule, 10 MG PO QHS, (Reported) allopurinoL (allopurinoL) 300 Mg Tablet, 150 MG PO DAILY, (Reported) Scheduled PRN Hydrocodone/Acetaminophen (Hydrocodone-Acetamin 10-325 mg) 1 Each Tablet, 1 TAB PO Q6H PRN for PAIN LEVEL 5-10, (Reported) Attending Note Attending Note I spoke to and examined the patient independent of Ms. Wasserman and reviewed his history, his imaging studies, laboratories as well as discussed the case with Dr. Velásquez. Essentially looks like to have had severe constipation, fecal impaction, may be an element of ileus which promoted nausea, abdominal distention and vomiting relieved overnight with laxatives for the constipation as well as placement of nasogastric tube. His symptoms are more to the lower abdomen. He is denying any epigastric discomfort. He did have prominent nausea and vomiting. His imaging studies especially the repeat CT abdomen and pelvis 0.2 possibility of gastroparesis, duodenitis, esophagitis. He denies any severe reflux or heartburn symptoms. 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 He is on aspirin, clopidogrel and is also diabetic. [facility] with [facility] of some [facility]ps but never have had an upper endoscopy or other studies related to the upper GI. At the time that I examined him abdomen is only minimally distended. He does have some mild leftover tenderness to palpation over the right lower quadrant area and also is reporting some mild occasional cramping. Upper abdominal exam is benign and nontender. He has a nasogastric tube but there is not much output there is some slight brownish coffee-ground output. Over liter of gastric fluid has been removed since placement. Impression and plan Constipation, obstipation, possible fecal impaction improved with a laxative. I recommend for him to take a stool softener daily and just use the laxatives intermittently. Also recommend a high-fiber diet, even take Metamucil 1 tablespoon to a glass of water daily. Possible duodenitis, esophagitis. Continue with PPI treatment. Can convert this to oral Protonix when he is able to tolerate food. Possible gastroparesis, ileus. I will observe the output of the nasogastric tube during the day and see if we could clamp this and see how the patient will tolerate the clamping. Recommend outpatient endoscopy and colonoscopy. He can follow-up in our office to schedule the procedure. Agnes Wasserman Apr 26, 2021 09:25 KATE COY MD Apr 26, 2021 10:14
[2021-04-26] MEDS ORDERED: SODIUM PHOSPHATE INJ 20 MMOL in D5W 250 ML IV ONE (10:00)
--- NOTE | 2021-04-26 12:44 | IPNPDOC ---
Subjective Date Seen The patient was seen on 04/26/21. Subjective Chief Complaint/HPI Patient was seen and examined at bedside this morning. He reports feeling " 50% better" (referring to his abdominal pain) after having several bowel movements overnight as well as an NG tube placed. He continues to require nicardipine in order to control his blood pressure however it is being titrated down. He denies chest pain, palpitations, and shortness of breath. He does have a Britt in place. Objective Physical Examination Heart Exam: Negative: Murmurs, Rubs Other physical findings General: Lying in bed, no acute distress Head/Neck/Throat: Trachea midline, mucous membranes moist Eyes: Sclera anicteric, no erythema or discharge appreciated bilaterally Thorax: Normal respiratory effort on room air, lungs clear to auscultation bilaterally, no wheezes/rales/rhonchi Cardiovascular: Tachycardic, regular rhythm, normal S1, S2 Abdomen: Bowel sounds present, soft, tenderness recreated diffusely, NG tube tube draining green/brown fluid Genitourinary: No CVA tenderness, no Britt in place Musculoskeletal: Moving all extremities, no edema Skin: Warm, dry Neurologic: AAOx3, speech fluent and goal-directed, no focal deficits, grossly intact Assessment /Plan Assessment #Hypertensive emergency -BP greater than 185/105 and patient has acute kidney injury on repeat labs. -Presently, he is on hydralazine 100 mg 4 times daily, clonidine 0.3 mg 3 times daily, metoprolol 50 mg every 6 hours, and nifedipine was added. We will hold off on adding diuretic due to his renal function #Acute injury -Poor p.o. intake as well as patient receiving contrast while he was on an ARB in the ambulatory setting. Improving with IV fluids. #Abnormal CTA of the chest -Repeat CT scan of the chest done in order to rule out ascending thoracic aorta, was negative for #Abdominal pain -CT scan of the abdomen pelvis noted: gastric distention with retained secretions and suggestive of gastroparesis gastric outlet obstruction. Mildly dilated small bowel loops in the upper abdomen indicating a possible ileus. There was thickened wall of the second and third portions of the duodenum consistent with duodenitis. -CT angio of the abdomen done on admission was negative -Patient started on Protonix, ceftriaxone and Flagyl due to the above findings. An NG tube was inserted on 04/25. His symptoms have begun to improve -Appreciate surgical input #Steatosis -This will need ongoing follow-up with his primary care physician upon discharge #Prolonged qtc -repeat ekg today to ensure QTC is within normal limits. -avoid qtc prolonging meds #Urinary retention -possibly 2/2 to constipation. Maintain britt for now. #Diabetes -Hold Metformin. Continue sliding scale, hypoglycemic protocol, and Accu-Cheks every 6 hrs #Depression -Continue with citalopram #BPH -Continue with Terazosin #DVT ppx -heparin subq Plan/VTE VTE Prophylaxis Ordered?: Yes VS, I&O, 24H, Fishbone Vital Signs/I&O Vital Signs Date Time Temp Pulse Resp B/P (MAP) Pulse Ox O2 Delivery O2 Flow Rate FiO2 04/26/21 06:30 95 154/69 (97) 94 04/26/21 06:00 20 Room Air 04/26/21 04:00 98.4 I&O- Last 24 Hours up to 6 AM 04/26/21 06:00 Intake Total 2444 ml Output Total 4035 ml Balance -1591 ml Laboratory Data 24H LABS Laboratory Tests 2 04/25/21 07:34: Bedside Glucose (Misc Panel) 177H 04/25/21 12:36: Bedside Glucose (Misc Panel) 176H 04/25/21 17:25: Bedside Glucose (Misc Panel) 179H 04/25/21 17:35: Lactic Acid Level 3.7*H 04/25/21 17:36: Anion Gap 13, Glomerular Filtration Rate 47.7, Calcium Level 9.4, Phosphorus Level 2.5, Magnesium Level 1.6L, Total Bilirubin 0.8#, Aspartate Amino Transf (AST/SGOT) 15, Alanine Aminotransferase (ALT/SGPT) 15, Alkaline Phosphatase 83, Troponin I 0.04, Total Protein 7.1, Albumin 3.8, Albumin/Globulin Ratio 1.2 04/25/21 21:08: Troponin I 0.04, Lactic Acid Level 2.3*H 04/25/21 21:38: Bedside Glucose (Misc Panel) 231H 04/25/21 23:51: 04/26/21 04:55: Immature Granulocyte % (Auto) 0.5, Neutrophils (%) (Auto) 90.3H, Lymphocytes (%) (Auto) 4.4L, Monocytes (%) (Auto) 4.7, Eosinophils (%) (Auto) 0.0, Basophils (%) (Auto) 0.1, Neutrophils # (Auto) 12.3H, Lymphocytes # (Auto) 0.6L, Monocytes # (Auto) 0.6, Eosinophils # (Auto) 0.0, Basophils # (Auto) 0.0, Nucleated Red Blood Cells % (auto) 0.0, Anion Gap 10, Glomerular Filtration Rate 56.2, Lactic Acid Followup at 4 Hours 1.6, Calcium Level 8.4L, Phosphorus Level 2.3L, Magnesium Level 1.8 04/26/21 05:20: Bedside Glucose (Misc Panel) 196H CBC/BMP Laboratory Tests 04/25/21 17:36 04/26/21 04:55 Microbiology Microbiology 04/25/21 Blood Culture - Preliminary, Resulted No growth after 24 hours . All specim... NINA HENRY M.D. Apr 26, 2021 07:01
[2021-04-26] MEDS ORDERED: oxyCODONE 5MG TAB PO ONE (17:00)
[2021-04-26] MEDS: cefTRIAXone SOD 1 GM in D5W MINI-BAG PLUS 50 ML IV SCH (20:25)
[2021-04-26] MEDS: TERAZOSIN 5MG CAPSULE PO SCH (20:44)
[2021-04-26] MEDS: ATORVASTATIN 20 MG TAB PO SCH (20:45)
[2021-04-26] MEDS: SENNA 8.6 MG TAB (SENOKOT) PO SCH (20:45)
[2021-04-27] VITALS (33 sets, daily range): BP systolic 143–212; BP diastolic 63–119
[2021-04-27] MEDS: METOPROLOL TART 50 MG TAB PO SCH ×5 (00:09→23:28)
[2021-04-27] MEDS: HumaLOG INSULIN (NovoLOG) PER UNIT SC SCH ×5 (00:16→23:28)
[2021-04-27] MEDS: THIAMINE INJection 500 MG in NS 100 ML IV SCH ×3 (01:19→18:26)
[2021-04-27] MEDS: NS 1,000 ML IV SCH (01:22)
[2021-04-27 05:19] LABS: BASO # 0.1 10^3/uL (0.0-0.2); BASO % 0.3 % (0.0-1.0); EOS % 0.2 % (0.0-3.0); HEMATOCRIT 27.2 % (42.0-52.0); HEMOGLOBIN 8.8 g/dl (13.5-17.5); LYMPH # 1.1 10^3/uL (1.5-5.0); LYMPH % 5.6 % (24.0-44.0); MEAN CORPUSCULAR HGB CONC 32.4 g/dl (32.0-36.5); MEAN CORPUSCULAR VOLUME 80.5 fl (80.0-96.0); MONO # 1.1 10^3/uL (0.0-0.8); MONO % 5.5 % (2.0-8.0); NEUTROPHILS # 17.6 10^3/uL (1.5-8.5); NEUTROPHILS % 87.7 % (36.0-66.0); PLATELET COUNT, AUTOMATED 190 10^3/uL (150-450); RED BLOOD COUNT 3.38 10^6/uL (4.30-6.10); WHITE BLOOD COUNT 20.1 10^3/uL (4.0-10.0)
[2021-04-27] MEDS: HEPARIN SOD (PORCINE) 5000UNITS/ML 1ML VIAL/SYRINGE SQ SCH ×3 (05:22→22:09)
[2021-04-27] MEDS: metroNIDAZOLE 500 MG in IV 1 EA IV SCH ×3 (05:23→22:09)
[2021-04-27 05:34] LABS: BLOOD UREA NITROGEN 24 MG/DL (7-18); CALCIUM LEVEL 8.2 MG/DL (8.8-10.2); CARBON DIOXIDE LEVEL 24 MEQ/L (21-32); CHLORIDE LEVEL 113 MEQ/L (98-107); CREATININE FOR GFR 1.11 MG/DL (0.70-1.30); GLOMERULAR FILTRATION RATE > 60.0 (>42); GLUCOSE, FASTING 115 MG/DL (70-100); MAGNESIUM LEVEL 1.7 MG/DL (1.8-2.4); PHOSPHORUS LEVEL 3.1 MG/DL (2.5-4.9); POTASSIUM SERUM 3.5 MEQ/L (3.5-5.1); SODIUM LEVEL 145 MEQ/L (136-145)
[2021-04-27] MEDS ORDERED: MAGNESIUM OXIDE 400MG TAB (MAG-OX) PO ONE (07:00)
[2021-04-27] MEDS ORDERED: POTASSIUM CHLORIDE 10MEQ SR TABLET PO ONE (07:05)
--- NOTE | 2021-04-27 08:29 | IPNPDOC ---
Text Note Date of Service The patient was seen on 04/27/21. NOTE General surgery. Dr. Coy This morning, the patient states he is not having any abdominal pain. NG tube is in place. 1125 mL output yesterday, 500 mL so far today. No bowel movements documented yesterday but 9 BM on 04/25. Denies nausea or vomiting this morning. Order placed to clamp NG tube as per Dr. Day this morning. T-max 100.3 this morning. Heart rate 77, respiratory rate 16, blood pressure 164/72, 94% room air. Awake and alert, resting in bed. No acute distress. NG tube in place. Lungs clear to auscultation S1-S2 regular rate rhythm Abdomen is soft, nontender this morning, nondistended. WBC 20.1 which is increased from 13.6 yesterday. Hemoglobin 8.8, 9.9 yesterday. Blood culture 04/25 neg. Blood culture 04/27 pending. Assessment/plan Abdominal pain. The patient is reviewed and examined as per Dr. Coy this morning. Abdominal pain felt likely secondary to constipation. The patient did have 9 bowel movements 04/25 and currently denies any pain Abdomen is soft and nondistended. Would recommend to continue with bowel regimen. Nausea/vomiting. Resolved. CT indicated possible ileus. NG tube in place. Trial of clamping NG tube this morning. If tolerates clamping, likely DC NG tube and trial of clear liquids. Continue to monitor. Esophagitis/gastritis/duodenitis suggested on CT. Currently Protonix 40 mg IV twice daily. Would recommend to continue with PPI. Plan for outpatient endoscopy. VS,Arpanbone, I+O VS, Fishbone, I+O Laboratory Tests 04/27/21 04:59 Vital Signs Date Time Temp Pulse Resp B/P (MAP) Pulse Ox O2 Delivery O2 Flow Rate FiO2 04/27/21 06:37 75 177/78 (111) 96 04/27/21 04:00 100.3 16 Room Air I&O- Last 24 Hours up to 6 AM 04/27/21 05:59 Intake Total 1277 ml Output Total 1285 ml Balance -8 ml Agnes Wasserman Apr 27, 2021 08:29
[2021-04-27] MEDS ORDERED: LOSARTAN 50MG TABLET PO SCH (09:00)
[2021-04-27] MEDS ORDERED: NIFEdipine 30 MG XL TAB PO SCH (09:00)
[2021-04-27] MEDS: **hydrALAZINE** 50 MG TAB PO SCH ×4 (09:06→20:11)
[2021-04-27] MEDS: CLOPIDOGREL 75 MG TAB PO SCH (09:07)
[2021-04-27] MEDS: DOCUSATE SODIUM 100MG CAPSULE PO SCH ×2 (09:07→20:12)
[2021-04-27] MEDS: MIRALAX *UNIT DOSE* 17GM PACKET PO SCH ×2 (09:08→20:12)
[2021-04-27] MEDS: ASPIRIN 81 MG CHEW TABLET PO SCH (09:08)
[2021-04-27] MEDS: PANTOPRAZOLE 40MG VIAL (C9113 PER 1) IV SCH ×2 (09:08→20:09)
[2021-04-27] MEDS: cloNIDine 0.1MG TABLET PO SCH ×3 (09:08→20:11)
--- NOTE | 2021-04-27 14:53 | IPNPDOC ---
Subjective Date Seen The patient was seen on 04/27/21. Subjective Chief Complaint/HPI Patient was seen and examined at bedside this morning. He reports feeling " 100% better" referring to his abdominal pain. He was asking to go home, however was explained that he still has NG tube in place which would be clamped today and will see how he does. Also, his blood pressure was still uncontrolled despite being on several antihypertensive medications. He denied chest pain, palpitations, headaches, blurry vision, nausea, vomiting, problem with bowel movements. Objective Physical Examination Heart Exam: Negative: Murmurs, Rubs Other physical findings General: Lying in bed, no acute distress Head/Neck/Throat: Trachea midline, mucous membranes moist Eyes: Sclera anicteric, appreciated bilaterally Thorax: Normal respiratory effort on room air, lungs clear to auscultation bilaterally, no wheezes/rales/rhonchi Cardiovascular: Normal rate, regular rhythm, normal S1, S2 Abdomen: Bowel sounds present, soft, nondistended, nontender to palpation Genitourinary: No CVA tenderness, no Britt in place Musculoskeletal: Moving all extremities, no edema Skin: Warm, dry Neurologic: AAOx3, speech fluent and goal-directed, no focal deficits, grossly intact Assessment /Plan Assessment #Hypertensive emergency -BP greater than 185/105 and patient has acute kidney injury on repeat labs. -He has very resistant hypertension, and we will continue to optimize his antihypertensive medications. Nephrology has also been consulted for further management #Acute kidney injury -Resolved. #Abnormal CTA of the chest -Repeat CT scan of the chest done in order to rule out ascending thoracic aorta, was negative #Abdominal pain -CT scan of the abdomen pelvis noted: gastric distention with retained secretions and suggestive of gastroparesis gastric outlet obstruction. Mildly dilated small bowel loops in the upper abdomen indicating a possible ileus. There was thickened wall of the second and third portions of the duodenum co nsistent with duodenitis. -CT angio of the abdomen done on admission was negative -Patient started on Protonix, ceftriaxone and Flagyl due to the above findings. An NG tube was inserted on 04/25. There has been resolution in his pain. We will clamp the NG tube today if he does well, will introduce clear liquid diets. -Appreciate surgical input #Steatosis -This will need ongoing follow-up with his primary care physician upon discharge #Prolonged qtc -repeat ekg today to ensure QTC is within normal limits. -avoid qtc prolonging meds #Urinary retention -possibly 2/2 to constipation. Maintain britt for now. #Diabetes -Hold Metformin. Continue sliding scale, hypoglycemic protocol, and Accu-Cheks every 6 hrs #Depression -Continue with citalopram #BPH -Continue with Terazosin #DVT ppx -heparin subq Plan/VTE VTE Prophylaxis Ordered?: Yes VS, I&O, 24H, Fishbone Vital Signs/I&O Vital Signs Date Time Temp Pulse Resp B/P (MAP) Pulse Ox O2 Delivery O2 Flow Rate FiO2 04/27/21 12:12 200/88 04/27/21 11:22 77 04/27/21 06:37 96 04/27/21 04:00 100.3 16 Room Air I&O- Last 24 Hours up to 6 AM 04/27/21 05:59 Intake Total 1277 ml Output Total 1285 ml Balance -8 ml Laboratory Data 24H LABS Laboratory Tests 2 04/26/21 17:13: Bedside Glucose (Misc Panel) 106 04/27/21 00:07: Bedside Glucose (Misc Panel) 165H 04/27/21 04:59: Immature Granulocyte % (Auto) 0.7, Neutrophils (%) (Auto) 87.7H, Lymphocytes (%) (Auto) 5.6L, Monocytes (%) (Auto) 5.5, Eosinophils (%) (Auto) 0.2, Basophils (%) (Auto) 0.3, Neutrophils # (Auto) 17.6H, Lymphocytes # (Auto) 1.1L, Monocytes # (Auto) 1.1H, Eosinophils # (Auto) 0.0, Basophils # (Auto) 0.1, Nucleated Red Blood Cells % (auto) 0.0, Anion Gap 8, Glomerular Filtration Rate > 60.0, Calcium Level 8.2L, Phosphorus Level 3.1#, Magnesium Level 1.7L 04/27/21 11:36: Bedside Glucose (Misc Panel) 122H CBC/BMP Laboratory Tests 04/27/21 04:59 Microbiology Microbiology 04/27/21 Blood Culture, Received Pending 04/27/21 Blood Culture, Received Pending 04/25/21 Blood Culture - Preliminary, Resulted No Growth after 48 hours. All Specime... NINA HENRY M.D. Apr 27, 2021 14:53
[2021-04-27] MEDS ORDERED: CHLORTHALIDONE 25 MG TAB PO ONE (17:00)
[2021-04-27] MEDS: cefTRIAXone SOD 1 GM in D5W MINI-BAG PLUS 50 ML IV SCH (20:09)
[2021-04-27] MEDS: TERAZOSIN 5MG CAPSULE PO SCH (20:10)
[2021-04-27] MEDS: ATORVASTATIN 20 MG TAB PO SCH (20:10)
[2021-04-27] MEDS: SENNA 8.6 MG TAB (SENOKOT) PO SCH (20:11)
[2021-04-27] MEDS: minoxidiL 2.5 MG TAB PO SCH (20:12)
[2021-04-28] VITALS (14 sets, daily range): BP systolic 158–231; BP diastolic 67–100
[2021-04-28] MEDS: THIAMINE INJection 500 MG in NS 100 ML IV SCH ×2 (02:00→09:00)
[2021-04-28 04:47] LABS: BASO # 0.1 10^3/uL (0.0-0.2); BASO % 0.8 % (0.0-1.0); EOS # 0.4 10^3/uL (0.0-0.5); EOS % 3.3 % (0.0-3.0); HEMATOCRIT 26.4 % (42.0-52.0); HEMOGLOBIN 8.4 g/dl (13.5-17.5); LYMPH # 1.4 10^3/uL (1.5-5.0); LYMPH % 12.3 % (24.0-44.0); MEAN CORPUSCULAR HEMOGLOBIN 25.5 pg (27.0-33.0); MEAN CORPUSCULAR HGB CONC 31.8 g/dl (32.0-36.5); MEAN CORPUSCULAR VOLUME 80.2 fl (80.0-96.0); MONO # 0.7 10^3/uL (0.0-0.8); MONO % 6.6 % (2.0-8.0); NEUTROPHILS # 8.6 10^3/uL (1.5-8.5); NEUTROPHILS % 76.6 % (36.0-66.0); PLATELET COUNT, AUTOMATED 181 10^3/uL (150-450); RED BLOOD COUNT 3.29 10^6/uL (4.30-6.10); WHITE BLOOD COUNT 11.3 10^3/uL (4.0-10.0)
[2021-04-28 05:12] LABS: BLOOD UREA NITROGEN 21 MG/DL (7-18); CARBON DIOXIDE LEVEL 25 MEQ/L (21-32); CHLORIDE LEVEL 111 MEQ/L (98-107); CREATININE FOR GFR 1.04 MG/DL (0.70-1.30); GLOMERULAR FILTRATION RATE > 60.0 (>42); GLUCOSE, FASTING 121 MG/DL (70-100); MAGNESIUM LEVEL 1.7 MG/DL (1.8-2.4); POTASSIUM SERUM 3.2 MEQ/L (3.5-5.1); SODIUM LEVEL 143 MEQ/L (136-145)
[2021-04-28] MEDS: HEPARIN SOD (PORCINE) 5000UNITS/ML 1ML VIAL/SYRINGE SQ SCH (05:42)
[2021-04-28] MEDS: metroNIDAZOLE 500 MG in IV 1 EA IV SCH (05:42)
[2021-04-28] MEDS: METOPROLOL TART 50 MG TAB PO SCH (05:43)
[2021-04-28] MEDS: HumaLOG INSULIN (NovoLOG) PER UNIT SC SCH (06:00)
[2021-04-28] MEDS: POTASSIUM CHLORIDE 10% LIQ 20 MEQ/15 ML UDC PO ONE ×2 (06:05→06:13)
[2021-04-28] MEDS ORDERED: POTASSIUM CHLORIDE 10MEQ SR TABLET PO ONE (06:20)
[2021-04-28] MEDS: **hydrALAZINE** 50 MG TAB PO SCH (06:54)
[2021-04-28] MEDS: cloNIDine 0.1MG TABLET PO SCH (07:49)
[2021-04-28] MEDS: minoxidiL 2.5 MG TAB PO SCH (07:50)
[2021-04-28] MEDS ORDERED: VALSARTAN 80 MG TAB (DIOVAN) PO SCH (09:00)
[2021-04-28] MEDS ORDERED: CHLORTHALIDONE 12.5MG PER 1/2 TABLET PO SCH (09:00)
[2021-04-28] MEDS: PANTOPRAZOLE 40MG VIAL (C9113 PER 1) IV SCH (09:00)
[2021-04-28] MEDS ORDERED: SENOKOT S TAB PO SCH (09:00)
[2021-04-28] MEDS: MIRALAX *UNIT DOSE* 17GM PACKET PO SCH (09:00)
[2021-04-28] MEDS: ASPIRIN 81 MG CHEW TABLET PO SCH (09:14)
[2021-04-28] MEDS: CLOPIDOGREL 75 MG TAB PO SCH (09:15)
[2021-04-28] MEDS: DOCUSATE SODIUM 100MG CAPSULE PO SCH (09:15)
[2021-04-28] MEDS ORDERED: TOPR100T PO (09:30)
[2021-04-28] MEDS ORDERED: MIRA1POW3 PO (09:30)
[2021-04-28] MEDS ORDERED: SENN-52 PO (09:30)
[2021-04-28] MEDS ORDERED: AMLO1TAB25 PO (09:30)
[2021-04-28] MEDS ORDERED: CLON0.3T PO (09:30)
[2021-04-28] MEDS ORDERED: FLAG500T PO (09:30)
[2021-04-28] MEDS ORDERED: CEFU50TA PO (09:30)
[2021-04-28] MEDS ORDERED: MINO2.5T PO (09:30)
[2021-04-28] MEDS ORDERED: DIOV80TA3 PO (09:30)
[2021-04-28] MEDS ORDERED: HYDR100T PO (09:30)
[2021-04-28] MEDS ORDERED: SPIRONOLACTONE 25 MG TAB PO ONE (10:00)
[2021-04-28] MEDS ORDERED: MAGNESIUM OXIDE 400MG TAB (MAG-OX) PO ONE (10:00)
[2021-04-28] MEDS ORDERED: K-PHOS ORIGINAL (POT.ACID PHOSPHATE) 500MG TAB PO ONE (12:00)
[2021-04-28] MEDS ORDERED: PANT40TA29 PO (20:25)
--- NOTE | 2021-04-28 20:28 | DS.PDOC ---
Discharge Summary General Date of Admission Apr 25, 2021 at 15:46 Date of Discharge 04/28/21 Discharge Summary DISCHARGE DIAGNOSES: 1. Hypertensive urgency/resistant hypertension 2. Ileus 3. Fecal impaction 4. Acute kidney injury 5. Duodenitis 6. GERD COMPLICATIONS/CHIEF COMPLAINT: Hypertensive Urgency. HOSPITAL COURSE: Mr. Manley, is a 80-year-old male with a PMH of hypertension, hemorrhoids, Ch etoqz-Mvpeh-Xevyr muscular atrophy , bradycardia , bilateral carotid artery stenosis, muscular dystrophy, gout, generalized anxiety disorder, diabetes, history of melanoma, BPH, hypogonadism, allergic rhinitis, CAD status post cardiac stents, hard of hearing, diabetic neuropathy, and chronic back pain who presented to the emergency room on 04/25/2021 [facility] for severe generalized abdominal pain. He attributed this to being constipated. In addition, he was noted to be hypertensive. He was admitted for further evaluation of his abdominal pain management of hypertension. The emergency department he was noted to have leukocytosis and lactic acidosis. A CT angiogram of the abdomen and pelvis was done due to the severity of pain that he had reported. There was moderate prostate enlargement. Sigmoid diverticulosis without diverticulitis. Small bilateral fat filled inguinal alvin ias. Otherwise, there was no abdominal aortic aneurysm or dissection appreciated. It was noted to be retaining urine attributed to his BPH. Therefore a De Oliveira was inserted and it was presumed that this may have been contributing to his abdominal pain. He was followed off antibiotics on day 1 of hospitalization. In order to better control his blood pressure he was started on a nicardipine drip in the emergency room department. A CT angiogram of the chest was also done that showed no pulmonary embolism. .There was slight pulmonary interstitial prominence with minimal infiltrate in the lateral right lower lobe and minimal fibro-atelectatic change and interstitial coarsening in the posterior lower lobes bilaterally. There was also mentioning of an ascending aortic dissection that could not be excluded. An EKG was done that showed no acute ST/T wave changes. Troponins were negative. There was no follow-up done on the day of admission in regards to CT scan findings as there was low suspicion for an actual dissection. On day 2 of admission, patient continued to complain of severe abdominal pain. A KUB was done that showed fecal impaction. Therefore his bowel regimen was optimized. Due to concerns of a dissection. The initial CT of the chest was reviewed with the radiologist and there was low suspicion for actual dissection of the ascending aorta. However, a repeat CT angiography was still recommended. Therefore the risks as well as benefits of receiving additional contrast was explained to the patient as he had acute kidney injury as well. Patient was willing to accept these risks. Fortunately, the repeat CAT scan was negative for definitive dissection. An abdominal CT scan was also done at the same time of the CT angiography of the chest. This showed diffuse thickening of the wall of the distal esophagus suggestive of possible reflux esophagitis versus neoplasm. There was gastric distention suggestive of possible gastroparesis gastric outlet obstruction. There is diffuse pancreatic atrophy. There is mild atherosclerotic changes at the SMA and celiac artery. There was mildly dilated small bowel loops in the upper abdomen suggestive of ileus. There was also thickening of the second and third portion of the duodenum suggestive of duodenitis. Following these findings, gastroenterology team was consulted contacted who recommended his surgery evaluation due to ongoing tenderness. Surgical team was consulted and recommended NG tube for decompression and optimization of bowel regimen. Following NG tube decompression and after the patient had several bowel movements he reported significant improvement in his abdominal pain. The findings of the CAT scan were discussed with the patient and he was encouraged to have outpatient follow-up for endoscopic evaluation. However, he reported he was 80 years old and would not want any further work-up and wanted to leave AGAINST MEDICAL ADVICE. He was on a nicardipine drip that was difficult to wean off. Once he was off the drip it was difficult to control his hypertension despite reintroducing his home medications and uptitrating his dosages and introducing new antihypertensives. The cardiology team which included hypertensive specialist was consulted and alterations to his antihypertensives are suggested. He was started on amlodipine and is clonidine was changed from 0.3 mg twice daily to 3 times daily, his hydralazine was changed from 50 mg to 100 mg 3 times a day, his metoprolol was changed from 25 mg daily to 100 mg daily. However, despite these changes he remained hypertensive. Therefore nephrology team was consulted as cardiology team are having difficulty seeing the patient. Nephrology team recommended for patient to be started on chlorthalidone and minoxidil. His antihypertensives were being adjusted when he want to leave AGAINST MEDICAL ADVICE. He was explained in great details that with uncontrolled blood pressure he could have a stroke and possibly lead to . He was willing to accept these risks. He repeatedly reported at the age of 80 he would not want to stay in the morning hospital. It should be noted patient was also started on ceftriaxone and Flagyl empirically for his duodenitis as this was thought to be possibly contributing to his abdominal pain. He was also started on Protonix as per surgery recommendations based on CT scan findings. Should be noted, that nephrology team wanted to assess renal stenosis or possible cause of his resistant hypertension as this was also appreciated on CT angiography that was done earlier. Patient was encouraged to follow-up with his primary care physician, pail bailer, rn medicare, surgical and or journalism professor as soon as possible. He was also highly encouraged to obtain copies of all imaging that was done during hospitalization for appropriate follow-up. DISCHARGE MEDICATIONS: Please see below. ALLERGIES: Please see below. PHYSICAL EXAMINATION ON DISCHARGE: VITAL SIGNS: Please see below. General: Lying in bed, no acute distress Head/Neck/Throat: Trachea midline, mucous membranes moist Eyes: Sclera anicteric, no erythema or discharge appreciated bilateral Thorax: Normal respiratory effort on room air, lungs clear to auscultation bilaterally, no wheezes/rales/rhonchi Cardiovascular: Normal rate, regular rhythm, normal S1, S2; no S3, S4, rubs/gallops/murmurs Abdomen: Bowel sounds present, soft/nontender/nondistended Genitourinary: No CVA tenderness, no De Oliveira in place Musculoskeletal: Moving all extremities, no edema Skin: Warm, dry Neurologic: AAOx3, speech fluent and goal-directed, no focal deficits, grossly intact LABORATORY DATA: Please see below. IMAGING: CT ANGIO CHEST FINDINGS: Pulmonary arteries: There are no pulmonary emboli. Aorta: Motion artifact again redemonstrated at the aortic root. No definite dissection visualized. Remaining thoracic aorta demonstrates mild atherosclerotic changes. Ulcerated clot demonstrated in the distal descending thoracic aorta. Findings are stable in comparison to the prior earlier examination. Thyroid: Heterogeneous appearance of the left lobe of the thyroid gland may signify the presence of nodularity. No aggressive features demonstrated. No follow-up suggested according to ACR guidelines. Lungs: Small calcified granuloma right upper lobe. Stable appearance of a coarse parenchymal infiltrate right lower lobe. Bibasilar atelectasis. Pleural spaces: Unremarkable. No pneumothorax. No pleural effusion. Heart: There is mild atherosclerotic calcification of the coronary arteries. Lymph nodes: Unremarkable. No enlarged lymph nodes. Bones/joints: The spine demonstrates mild degenerative changes. Soft tissues: Lipoma in the left subscapularis muscle. IMPRESSION: 1. Motion artifact again redemonstrated at the aortic root. No definite dissection visualized. Remaining thoracic aorta demonstrates mild atherosclerotic changes. Ulcerated clot demonstrated in the distal descending thoracic aorta. Findings are stable in comparison to the prior earlier examination. 2. There are no pulmonary emboli. 3. Heterogeneous appearance of the left lobe of the thyroid gland may signify the presence of nodularity. No aggressive features demonstrated. No follow-up suggested according to ACR guidelines. 4. Stable parenchymal infiltrates as described above. CT ABD W/IV CONTRAST ONLY FINDINGS: Mediastinal space: Diffuse thickening of the wall of the distal esophagus. Clinical correlation to exclude changes related to reflux esophagitis versus neoplasm suggested. Liver: There is a diffuse decrease in hepatic parenchymal density, consistent with steatosis. Gallbladder and bile ducts: Vicarious excretion of contrast media within the lumen of the gallbladder. No gallstones or gallbladder wall thickening demonstrated. Pancreas: There is diffuse pancreatic atrophy. Spleen: Normal. No splenomegaly. Adrenals: Normal. No mass. Kidneys and ureters: Bilateral simple renal cysts measure up to 3.4 cm. No follow-up suggested. Stomach and bowel: There is gastric distention with retained secretions. Clinical correlation to exclude gastroparesis or gastric outlet obstruction suggested. Mildly dilated small bowel loops in the upper abdomen may indicate an ileus. Findings not typical for small bowel obstruction at this juncture. Thickened wall of the 2nd and 3rd portions of the duodenum may reflect duodenitis. Clinical correlation to exclude other etiologies including neoplasm suggested. Intraperitoneal space: Unremarkable. No free air. No significant fluid collection. Lymph nodes: Unremarkable. No enlarged lymph nodes. Vasculature: The aortoiliac vessels demonstrate mild atherosclerotic calcification. Mild atherosclerotic changes at the origin of the superior mesenteric artery and celiac artery without significant stenosis. Bones/joints: Mild central spinal stenosis L3-L4 and L4-L5. Soft tissues: There is a small umbilical hernia. There is no evidence of incarceration. IMPRESSION: 1. Diffuse thickening of the wall of the distal esophagus. Clinical correlation to exclude changes related to reflux esophagitis versus neoplasm suggested. 2. There is a diffuse decrease in hepatic parenchymal density, consistent with steatosis. 3. Vicarious excretion of contrast media within the lumen of the gallbladder. No gallstones or gallbladder wall thickening demonstrated. 4. There is gastric distention with retained secretions. Clinical correlation to exclude gastroparesis or gastric outlet obstruction suggested. 5. There is diffuse pancreatic atrophy. 6. Mild atherosclerotic changes at the origin of the superior mesenteric artery and celiac artery without significant stenosis. 7. Mildly dilated small bowel loops in the upper abdomen may indicate an ileus. Findings not typical for small bowel obstruction at this juncture. 8. Thickened wall of the 2nd and 3rd portions of the duodenum may reflect duodenitis. Clinical correlation to exclude other etiologies including neoplasm suggested. PROGNOSIS: Guarded ACTIVITY: As tolerated DIET: Cardiac diet DISPOSITION: Against Medical Advice. DISCHARGE INSTRUCTIONS: 1. Patient was encouraged to follow-up with his primary care physician, pail bailer, rn medicare, surgical and or journalism professor as soon as possible. He was also highly encouraged to obtain copies of all imaging that was done during hospitalization for appropriate follow-up. TIME SPENT ON DISCHARGE: 30 minutes. Vital Signs/I&Os Vital Signs Date Time Temp Pulse Resp B/P (MAP) Pulse Ox O2 Delivery O2 Flow Rate FiO2 04/28/21 09:15 70 190/90 04/28/21 09:00 98 Room Air 04/28/21 07:06 18 04/28/21 04:00 99.1 I&O- Last 24 Hours up to 6 AM 04/28/21 06:00 Intake Total 1975 ml Output Total 2745 ml Balance -770 ml Laboratory Data Labs 24H Laboratory Tests 2 04/27/21 23:26: Bedside Glucose (Misc Panel) 138H 04/28/21 04:24: Immature Granulocyte % (Auto) 0.4, Neutrophils (%) (Auto) 76.6H, Lymphocytes (%) (Auto) 12.3L, Monocytes (%) (Auto) 6.6, Eosinophils (%) (Auto) 3.3H, Basophils (%) (Auto) 0.8, Neutrophils # (Auto) 8.6H, Lymphocytes # (Auto) 1.4L, Monocytes # (Auto) 0.7, Eosinophils # (Auto) 0.4, Basophils # (Auto) 0.1, Nucleated Red Blood Cells % (auto) 0.0, Anion Gap 7L, Glomerular Filtration Rate > 60.0, Calcium Level 8.0L, Phosphorus Level 2.0#L, Magnesium Level 1.7L CBC/BMP Laboratory Tests 04/28/21 04:24 FSBS Laboratory Tests Test 04/27/21 23:26 Range/Units Bedside Glucose (Misc Panel) 138 83-110 MG/DL Microbiology Microbiology 04/27/21 Blood Culture - Preliminary, Resulted No growth after 24 hours . All specim... 04/27/21 Blood Culture - Preliminary, Resulted No growth after 24 hours . All specim... 04/25/21 Blood Culture - Preliminary, Resulted No Growth after 72 hours. All specime... Discharge Medications Scheduled Amitriptyline HCl (Amitriptyline HCl) 50 Mg Tablet, 50 MG PO QHS, (Reported) Amlodipine Besylate (Amlodipine Besylate) 10 Mg Tablet, 10 MG PO DAILY Aspirin (Aspirin EC) 81 Mg Tablet.dr, 81 MG PO QHS, (Reported) Atorvastatin Calcium (Atorvastatin Calcium) 40 Mg Tablet, 40 MG PO QPM, (Reported) TAKES AT DINNERTIME Cefuroxime Axetil (Cefuroxime) 500 Mg Tablet, 500 MG PO BID Citalopram Hydrobromide (Citalopram HBr) 40 Mg Tablet, 40 MG PO DAILY, (Reported) Clonidine HCl (Clonidine HCl) 0.3 Mg Tablet, 0.3 MG PO TID Clopidogrel Bisulfate (Clopidogrel) 75 Mg Tablet, 75 MG PO DAILY, (Reported) Metformin HCl (Metformin HCl) 1,000 Mg Tablet, 1,000 MG PO BID, (Reported) Metoprolol Succinate (Toprol Xl) 100 Mg Tab.er.24h, 100 MG PO DAILY Metronidazole (Flagyl) 500 Mg Tablet, 500 MG PO Q8H FOR 10 DAYS Minoxidil (Minoxidil) 2.5 Mg Tablet, 2.5 MG PO BID Multivitamins (Thera M Plus Tablet) 1 Each Tablet, 1 TAB PO DAILY, (Reported) [place]ushing-3 Fatty Acids/Fish Oil (Fish Oil 1,000 mg Capsule) 1 Each Capsule, 1,000 MG PO DAILY, (Reported) Polyethylene Glycol 3350 (Miralax) 17 Gm Powd.pack, 1 PKT PO DAILY Sennosides/Docusate Sodium (Senna Plus Tablet) 1 Each Tablet, 1 TAB PO BID Terazosin Hcl (Terazosin HCl) 10 Mg Capsule, 10 MG PO QHS, (Reported) Valsartan (Diovan) 80 Mg Tablet, 320 MG PO DAILY allopurinoL (allopurinoL) 300 Mg Tablet, 150 MG PO DAILY, (Reported) hydrALAZINE HCL (Hydralazine HCl) 100 Mg Tablet, 100 MG PO TID Allergies Coded Allergies: No Known Allergies (Unverified , 04/25/21) NINA HENRY M.D. Apr 28, 2021 20:28
--- NOTE | 2021-04-29 10:55 | ECGEPIP ---
[facility] Test Date: 2021-04-27 Pat Name: MIGUEL A WAYNE Department: Room: [place] [address] Gender: Male [employer]: MADHAV : 1940 Requested By: NINA Barbosa Order Number: [id number] Reading MD: Gunner Higginbotham Measurements Intervals [place] Rate: 76 P: 84 VA: 174 QRS: 36 QRSD: 96 T: 22 QT: 428 QTc: 481 Interpretive Statements Sinus rhythm with premature atrial complexes Nonspecific ST and T wave abnormality Electronically Signed on 04-29-2021 10:54:58 EDT by Gunner Higginbotham
--- NOTE | 2021-05-01 18:45 | CR ---
INPATIENT NEPHROLOGY CONSULTATION DATE: 04/27/2021 REQUESTING PHYSICIAN: Rickie Chapman M.D. CONSULTING PHYSICIAN: Angela Koroma D.O. REASON FOR CONSULTATION: Uncontrolled hypertension. HISTORY OF PRESENT ILLNESS: Alexander Manley is a 80-year-old male with a past medical history of chronic hypertension (the patient reports managed by his primary care physician with 3 antihypertensives Clonidine, Hydralazine, Metoprolol). He also has a history of type 2 diabetes mellitus, non-insulin dependent, muscular dystrophy, gout, anxiety, benign prostatic hypertrophy, history of coronary artery disease, status post coronary stents and other comorbid conditions mentioned below. The patient was admitted to [facility] on April 25 with complaints of severe generalized abdominal pain and concern of fecal impaction because of progressive constipation. In the Emergency Room the patient was found to be severely hypertensive with blood pressure 257/134, and initial laboratory studies showed leukocytosis (white count 13.9) and mild lactic acidosis. The patient was found to be in urinary retention and had a De Oliveira catheter placed with immediate output of almost one liter. The patient had improvement in his abdominal pain once the De Oliveira catheter was placed. The patient did undergo CT angiography of the chest times two on April 25 to rule out any sort of aortic dissection. He had a mild acute kidney injury but renal function did subsequently improve and creatinine is 1.1 today. Multiple antihypertensives were given and the patient was also placed on a Nicardipine infusion, but his blood pressures remain severely uncontrolled with readings today showing systolic 190's to 210's and Nephrology evaluation was requested for help in the management of this patient's hypertensive emergency. The patient did have a nasogastric tube because of gastric distention seen on CAT scan with the suggestion of possible gastroparesis and possible ileus. PAST MEDICAL HISTORY: The patient's past medical history is significant for: 1. Hypertension. 2. Diabetes. 3. Urinary retention 4. Benign prostatic hypertrophy. 5. Depression. 6. Hemorrhoids. 7. Charcot Joan tooth muscular atrophy. 8. Bilateral carotid artery stenosis. 9. Gout. 10. Anxiety. 11. History of melanoma. 12. Allergic rhinitis. 13. Coronary artery disease - status post cardiac stents. 14. Hard of hearing. 15. Chronic back pain. 16. Diabetic neuropathy. PAST SURGICAL HISTORY: The patient's past surgical history is significant for: 1. Cardiac stents. 2. History of back surgery remotely. FAMILY HISTORY: The patient's family history is significant for hypertension for his mother. SOCIAL HISTORY: The patient is an ex-smoker. No alcohol, no drugs. He lives alone. HOME MEDICATIONS: 1. Clonidine. 2. Hydralazine. 3. Metformin. 4. Metoprolol. ALLERGIES: No known drug allergies. REVIEW OF SYSTEMS: Constitutional: He denies any fevers or chills. Eyes: He denies visual changes or tearing. ENT: Reports hard of hearing and allergic rhinitis. Cardiac: Reports history of coronary artery disease and carotid artery stenosis. Respiratory: He denies shortness or cough. Gastrointestinal: Reports constipation and recent abdominal pain. Genitourinary: Reports urinary retention requiring a De Oliveira catheter. He denies hematuria. Musculoskeletal: Reports history of gout and muscular dystrophy. Endocrine: Reports some diabetes. Denies thyroid problems. Hematologic: He denies anticoagulant use. He is anemic on the labs today. Skin: Reports history of melanoma. Denies any new rashes or pruritus. Neurologic: Denies seizure or syncope. The remainder of review of systems is negative or as per HPI. PHYSICAL EXAMINATION: VITAL SIGNS: Temperature 98.6, pulse 77, respiratory rate 22, blood pressure 200/88, saturating 95% on room air. INTAKE AND OUTPUT: Intake yesterday shows 1.9 liters in and 2.2 liters out of which 1.1 liter was gastric drainage and 1.1 liter was urine. Weight in the bed scale today is not recorded. GENERAL APPEARANCE: The patient is lying in the bed in the Intensive Care Unit, elderly male, awake, alert and oriented, comfortable and in no distress. HEENT: The extraocular muscles are intact. He has an NG tube that has been clamped. Tongue is moist. NECK: Supple. Jugular veins are not elevated. HEART: Sounds are regular, S1, S2 and not bradycardic. LUNGS: Good air movement bilaterally. No crackles, rales or rhonchi. ABDOMEN: Soft and nontender. There is a De Oliveira catheter in place. No bruit heard over the renal fossa. EXTREMITIES: Negative for edema or cyanosis. NEUROLOGIC: He is oriented x3, interactive, conversational. LABORATORY STUDIES: White count 20.1, hemoglobin 8.8, platelet count 190, sodium 145, potassium 3.5, BUN 24, creatinine 1.1, glucose 115, lactic acid 1.6, phosphorous 3.1, magnesium 1.7. MICROBIOLOGY: Blood cultures have no growth from April 25 and repeat blood cultures have been drawn today and are pending. IMAGING: CT angiography from April 25 is reviewed and discussed with Dr. Jones of Radiology. 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 The upper two are smaller, and the lower one is a major artery and has a stenosis of about 70%. CAT scans were also significant for enlarged prostate and De Oliveira catheter decompressing the bladder. INPATIENT MEDICATIONS: Medication list was reviewed and notable for a significant amount of antihypertensives including Amlodipine 10 mg p.o. daily. He is also on Chlorthalidone 25 mg p.o. times one dose given today, Clonidine 0.3 mg p.o. twice daily, Hydralazine 100 mg p.o. four times daily, Losartan 100 mg p.o. times one dose, Metoprolol 50 mg p.o. q. 6 hourly. He was recently on a Nicardipine infusion. He is on Nifedipine 90 mg p.o. daily, Terazosin 10 mg p.o. q. h.s., and other medications include Tylenol p.r.n., Aspirin 81 mg p.o. daily, Lipitor 80 mg p.o. daily, Dulcolax p.r.n., Tums times one dose, Plavix 75 mg p.o. daily, Docusate 100 mg p.o. twice daily, Insulin, Magnesium 400 mg p.o. times several doses. PROBLEMS: 1. Uncontrolled hypertension - The patient came in with hypertensive emergency. He did have two CT angiographies on this admission to rule out aortic dissection. The angiography also visualized the renal arteries and showed a single patent right renal artery and three patent left renal arteries. The right renal artery was felt to have 50% stenosis and the lower left renal artery, which was felt to be the major renal artery on the left was felt to be stenosed about 70%. I discussed these findings with Dr. Jones in Radiology. The patient is on maximum antihypertensive regimen at this time. He has been treated with a Nicardipine infusion. He is on a calcium channel marshall, Thiazide type diuretic. He is a high dose of Clonidine and also on maximum dose Hydralazine, also on maximum dose ARB therapy, and also on high dose beta marshall (Metoprolol 50 mg p.o. q. 6 hourly) and I have added Minoxidil and I am also giving the patient a dose of Spironolactone. He is additionally on Terazosin. If his blood pressures do not improve, would consider intervention of his renal arteries, especially the left lower branch. I also note the patient had a renal artery Doppler back in 2012 and I feel that uncontrolled blood pressure is a probably a chronic issue for him, given that he had that renal artery Doppler several years ago. The patient himself tells me his blood pressure usually is "pretty good". 2. Hypokalemia Spironolactone is added to the current list of antihypertensives in view of resistant hypertension and low potassium. 3. Recent mild acute kidney injury in the setting of uncontrolled hypertension and recent contrast exposure - renal function is improving and he is on maximum dose ARB therapy and is also receiving diuretic type of antihypertensive, and we will keep a close eye on renal function. 4. Significant leukocytosis - white count is up to 20 today. The patient is also noted to have low grade fever, T-max of 100.3 this morning and blood cultures have been sent and pending. His urinalysis was negative. 5. Urinary retention and benign prostatic hypertrophy - The patient did require a De Oliveira catheter for decompression of his bladder, and he continues on medications for his benign prostatic hypertrophy and will need to follow up with Urology. Thank you for involving me in the care of Mr. Manley. I will be happy to follow him along with you.
== END 2021-04-28 10:25 | disposition left against medical advice (07) | DRG 305 ==
LOC: M ED 00:20 → M ED INP 00:21 → M ICU 06:35 → OBSVTOIN 15:46
PROVIDERS: ADMIT Family Medicine; ATTEND Family Medicine
DX: I16.0 Hypertensive urgency (principal); K56.7 Ileus, unspecified; N17.9 Acute kidney failure, unspecified; I10 Essential (primary) hypertension; E11.42 Type 2 diabetes mellitus with diabetic polyneuropathy; G71.00 Muscular dystrophy, unspecified; M10.9 Gout, unspecified; F41.1 Generalized anxiety disorder; N40.1 Benign prostatic hyperplasia with lower urinary tract symptoms; E29.1 Testicular hypofunction; I25.10 Atherosclerotic heart disease of native coronary artery without angina pectoris; Z95.5 Presence of coronary angioplasty implant and graft; K59.03 Drug induced constipation; Z87.891 Personal history of nicotine dependence; Z79.899 Other long term (current) drug therapy; Z79.82 Long term (current) use of aspirin; Z79.84 Long term (current) use of oral hypoglycemic drugs; Z20.822 Contact with and (suspected) exposure to COVID-19; K64.9 Unspecified hemorrhoids; M54.50 Low back pain, unspecified; R33.9 Retention of urine, unspecified; D72.829 Elevated white blood cell count, unspecified; I44.7 Left bundle-branch block, unspecified; Z66 Do not resuscitate; I65.23 Occlusion and stenosis of bilateral carotid arteries; K21.9 Gastro-esophageal reflux disease without esophagitis

== ENCOUNTER → 2022-04-04 | Outpatient (REF) | payer MEDICARE ==
[~2022-04-04] MED LIST: ALLO300T2 PO; AMIT50TA PO; AMLO1TAB25 PO; ASPI-161 PO; ATOR40TA75 PO; CEFU50TA PO; CITA40TA6 PO; CLON0.3T PO; CLOP75TA2 PO; DIOV80TA3 PO; FISH1000 PO; FLAG500T PO; HYDR-3911 PO; HYDR-4517 PO; HYDR100T PO; LOSA100T45 PO; METF10004 PO; METO1TAB32 PO; MINO2.5T PO; MIRA1POW3 PO; PANT40TA29 PO; SENN-52 PO; TERA10CA3 PO; TOPR100T PO; VITMTA PO
[2022-04-04 13:37] LABS: HEMATOCRIT 29.2 % (42.0-52.0); HEMOGLOBIN 8.7 g/dl (13.5-17.5); MEAN CORPUSCULAR HGB CONC 29.8 g/dl (32.0-36.5); MEAN CORPUSCULAR VOLUME 77.2 fl (80.0-96.0); PLATELET COUNT, AUTOMATED 209 10^3/uL (150-450); RED BLOOD COUNT 3.78 10^6/uL (4.30-6.10); WHITE BLOOD COUNT 7.2 10^3/uL (4.0-10.0)
[2022-04-04 14:27] LABS: CHOLESTEROL RISK RATIO 2.269 (<5); FREE T4 1.12 NG/DL (0.76-1.46); PERCENT SATURATION 6.7 % (19.7-50.0); THYROID STIMULATING HORMONE 2.31 uIU/ML (0.358-3.740); TOTAL PROTEIN 6.5 GM/DL (6.4-8.2)
[2022-04-04 15:39] LABS: HEMOGLOBIN A1c 6.1 %
[2022-04-05 19:09] LABS: FREE KAPPA LIGHT CHAINS SERUM 40.5 mg/L (3.3-19.4); FREE LAMBDA LIGHT CHAINS SERUM 24.3 mg/L (5.7-26.3); KAPPA/LAMBDA RATIO SERUM 1.67 (0.26-1.65)
== END ==
LOC: M SFHCADAM 11:45
PROVIDERS: ATTEND Family Medicine
DX: D64.9 Anemia, unspecified (principal); R63.4 Abnormal weight loss; E04.1 Nontoxic single thyroid nodule; E11.9 Type 2 diabetes mellitus without complications; I25.10 Atherosclerotic heart disease of native coronary artery without angina pectoris; E78.5 Hyperlipidemia, unspecified; Z95.5 Presence of coronary angioplasty implant and graft

== ENCOUNTER 2022-05-22 17:36 | Inpatient (IN) | payer MEDICARE ==
[~2022-05-22] VITALS: Ht 177.8 cm; Wt 92.8 kg
[2022-05-22 18:51] LABS: BASO # 0.1 10^3/uL (0.0-0.2); BASO % 0.9 % (0.0-1.0); EOS # 0.2 10^3/uL (0.0-0.5); EOS % 2.3 % (0.0-3.0); HEMATOCRIT 32.9 % (42.0-52.0); HEMOGLOBIN 9.9 g/dl (13.5-17.5); LYMPH # 1.8 10^3/uL (1.5-5.0); LYMPH % 21.3 % (24.0-44.0); MEAN CORPUSCULAR HGB CONC 30.1 g/dl (32.0-36.5); MEAN CORPUSCULAR VOLUME 79.9 fl (80.0-96.0); MONO # 0.5 10^3/uL (0.0-0.8); MONO % 5.6 % (2.0-8.0); NEUTROPHILS % 69.7 % (36.0-66.0); PLATELET COUNT, AUTOMATED 205 10^3/uL (150-450); RED BLOOD COUNT 4.12 10^6/uL (4.30-6.10); WHITE BLOOD COUNT 8.6 10^3/uL (4.0-10.0)
[2022-05-22 19:10] LABS: INR 0.98; PROTHROMBIN TIME 13.2 SECONDS (12.5-14.5)
[2022-05-22 19:11] LABS: PARTIAL THROMBOPLASTIN TIME 26.5 SECONDS (24.8-34.2)
[2022-05-22] MEDS ORDERED: **hydrALAZINE** 50 MG TAB PO ONE (19:25)
[2022-05-22] MEDS ORDERED: cloNIDine 0.1MG TABLET PO ONE (19:25)
[2022-05-22 19:50] LABS: ALBUMIN 3.9 GM/DL (3.2-5.2); BILIRUBIN,DIRECT 0.1 MG/DL (0.0-0.2); BILIRUBIN,TOTAL 0.4 MG/DL (0.2-1.0); CALCIUM LEVEL 9.1 MG/DL (8.8-10.2); CREATININE FOR GFR 1.57 MG/DL (0.70-1.30); GLOMERULAR FILTRATION RATE 45.5 (>35); POTASSIUM SERUM 3.9 MEQ/L (3.5-5.1); TOTAL PROTEIN 6.7 GM/DL (6.4-8.2)
[2022-05-22 20:43] LABS: RSV AMPLIFICATION NEGATIVE (NEGATIVE)
[2022-05-22] MEDS ORDERED: niCARdipine IV 40 MG in IV 1 EA IV SCH (21:00)
[2022-05-22] MEDS ORDERED: MOM 30ML SUSPENSION UDC PO PRN (22:00)
[2022-05-22] MEDS ORDERED: ACETAMINOPHEN TAB 650MG DOSE (2X325MG) PO PRN (22:00)
[2022-05-22] MEDS ORDERED: DEXTROSE 50% 50 ML SYRINGE IV PRN (22:05)
[2022-05-22] MEDS ORDERED: GLUCOSE 4GM CHEW TABLET PO PRN (22:05)
[2022-05-22] MEDS ORDERED: GLUCAGON INJ 1MG VIAL SC PRN (22:05)
[2022-05-22] MEDS ORDERED: CLON0.3T PO (22:51)
[2022-05-22] MEDS ORDERED: LOSA100T45 PO (22:51)
[2022-05-22] MEDS ORDERED: DOCU100C16 PO (22:51)
[2022-05-22] MEDS ORDERED: FERR1TAB8 PO (22:51)
[2022-05-22] MEDS ORDERED: HYDR-4517 PO (22:53)
[2022-05-22] MEDS ORDERED: METO1TAB32 PO (22:53)
[2022-05-22] MEDS ORDERED: HYDR-3911 PO (22:53)
[2022-05-22] MEDS ORDERED: HOME MED LIST COMPLETE! XX SCH (22:55)
[2022-05-22] MEDS: niCARdipine IV 40 MG in IV 1 EA IV SCH (23:43)
[2022-05-23] VITALS (40 sets, daily range): BP systolic 147–239; BP diastolic 72–134
[2022-05-23] MEDS: INSULIN LISPRO (NovoLOG) PER UNIT SC SCH ×5 (00:12→20:38)
[2022-05-23] MEDS: niCARdipine IV 40 MG in IV 1 EA IV SCH (01:32)
[2022-05-23 04:24] LABS: HEMATOCRIT 33.3 % (42.0-52.0); HEMOGLOBIN 10.1 g/dl (13.5-17.5); MEAN CORPUSCULAR HEMOGLOBIN 23.8 pg (27.0-33.0); MEAN CORPUSCULAR HGB CONC 30.3 g/dl (32.0-36.5); MEAN CORPUSCULAR VOLUME 78.4 fl (80.0-96.0); PLATELET COUNT, AUTOMATED 178 10^3/uL (150-450); RED BLOOD COUNT 4.25 10^6/uL (4.30-6.10); WHITE BLOOD COUNT 7.4 10^3/uL (4.0-10.0)
[2022-05-23 05:02] LABS: ALBUMIN 3.4 GM/DL (3.2-5.2); BILIRUBIN,TOTAL 0.5 MG/DL (0.2-1.0); CALCIUM LEVEL 8.9 MG/DL (8.8-10.2); CREATININE FOR GFR 1.25 MG/DL (0.70-1.30); GLOMERULAR FILTRATION RATE 59.2 (>35); MAGNESIUM LEVEL 1.6 MG/DL (1.8-2.4); POTASSIUM SERUM 3.5 MEQ/L (3.5-5.1); TOTAL PROTEIN 6.6 GM/DL (6.4-8.2)
[2022-05-23] MEDS: HEPARIN SOD (PORCINE) 5000UNITS/ML 1ML VIAL/SYRINGE SC SCH ×3 (05:08→22:23)
[2022-05-23] MEDS ORDERED: MAG SULF 1GM/100ML (MAG RUN) 1 GM in IV 1 EA IV ONE (05:30)
[2022-05-23] MEDS ORDERED: MAGNESIUM OXIDE 400MG TAB (MAG-OX) PO ONE (05:40)
[2022-05-23] MEDS: ATORVASTATIN 20 MG TAB PO SCH (08:14)
[2022-05-23] MEDS: FERROUS SULFATE 325MG TAB PO SCH (08:14)
[2022-05-23] MEDS: CLOPIDOGREL 75 MG TAB PO SCH (08:15)
[2022-05-23] MEDS: DOCUSATE SODIUM 100MG CAPSULE PO SCH ×2 (08:20→20:36)
[2022-05-23] MEDS ORDERED: METOPROLOL SUCC *XL* 25MG TAB (TopROL *XL*) PO SCH (09:00)
[2022-05-23] MEDS ORDERED: **hydrALAZINE** 50 MG TAB PO SCH ×2 (09:00→18:00)
[2022-05-23] MEDS ORDERED: cloNIDine 0.1MG TABLET PO SCH (09:00)
[2022-05-23] MEDS ORDERED: **hydrALAZINE** 50 MG TAB PO ONE (14:00)
[2022-05-23] MEDS ORDERED: ISOSORBIDE DIN. (ISORDIL) 20 MG TAB PO SCH (14:00)
[2022-05-23] MEDS: **hydrALAZINE HCL** 25 MG TAB PO SCH (17:54)
[2022-05-23] MEDS: NORCO, ANEXSIA 5/325MG TABLET (HYDROcodone/ACETAMINOPHEN) PO PRN (18:08)
[2022-05-23] MEDS: AMITRIPTYLINE 50 MG TAB PO SCH (20:36)
[2022-05-23] MEDS: ASPIRIN 81MG ENTERIC TABLET PO SCH (20:37)
[2022-05-23] MEDS: TERAZOSIN 5MG CAPSULE PO SCH (20:37)
[2022-05-23] MEDS: ISOSORBIDE DIN. (ISORDIL) 30 MG TAB PO SCH (20:37)
[2022-05-24] VITALS (27 sets, daily range): BP systolic 142–232; BP diastolic 67–143
[2022-05-24] MEDS: **hydrALAZINE HCL** 25 MG TAB PO SCH ×2 (00:08→06:06)
[2022-05-24] MEDS: NORCO, ANEXSIA 5/325MG TABLET (HYDROcodone/ACETAMINOPHEN) PO PRN ×4 (02:59→23:57)
[2022-05-24] MEDS: ISOSORBIDE DIN. (ISORDIL) 30 MG TAB PO SCH (03:00)
[2022-05-24 04:22] LABS: BASO # 0.1 10^3/uL (0.0-0.2); BASO % 1.2 % (0.0-1.0); EOS # 0.2 10^3/uL (0.0-0.5); EOS % 2.4 % (0.0-3.0); HEMATOCRIT 28.8 % (42.0-52.0); LYMPH # 1.7 10^3/uL (1.5-5.0); LYMPH % 25.7 % (24.0-44.0); MEAN CORPUSCULAR HEMOGLOBIN 24.1 pg (27.0-33.0); MEAN CORPUSCULAR HGB CONC 31.3 g/dl (32.0-36.5); MONO # 0.5 10^3/uL (0.0-0.8); MONO % 7.1 % (2.0-8.0); NEUTROPHILS # 4.3 10^3/uL (1.5-8.5); NEUTROPHILS % 63.5 % (36.0-66.0); PLATELET COUNT, AUTOMATED 190 10^3/uL (150-450); RED BLOOD COUNT 3.74 10^6/uL (4.30-6.10); WHITE BLOOD COUNT 6.7 10^3/uL (4.0-10.0)
[2022-05-24 05:16] LABS: BLOOD UREA NITROGEN 22 MG/DL (7-18); CALCIUM LEVEL 8.9 MG/DL (8.8-10.2); CARBON DIOXIDE LEVEL 26 MEQ/L (21-32); CHLORIDE LEVEL 108 MEQ/L (98-107); CHOLESTEROL LEVEL 123 MG/DL (<200); CHOLESTEROL RISK RATIO 2.365 (<5); CREATININE FOR GFR 1.17 MG/DL (0.70-1.30); GLOMERULAR FILTRATION RATE > 60.0 (>35); GLUCOSE, FASTING 119 MG/DL (70-100); HDL CHOLESTEROL 52 MG/DL (>40); LDL CHOLESTEROL 54 MG/DL (<100); NON-HDL-C 71 MG/DL; POTASSIUM SERUM 3.2 MEQ/L (3.5-5.1); SODIUM LEVEL 139 MEQ/L (136-145); TRIGLYCERIDES LEVEL 86 MG/DL (<150)
[2022-05-24] MEDS: HEPARIN SOD (PORCINE) 5000UNITS/ML 1ML VIAL/SYRINGE SC SCH ×3 (06:07→22:45)
[2022-05-24] MEDS: INSULIN LISPRO (NovoLOG) PER UNIT SC SCH ×4 (07:30→20:21)
[2022-05-24] MEDS ORDERED: **hydrALAZINE** 50 MG TAB PO ONE (07:45)
[2022-05-24] MEDS ORDERED: cloNIDine 0.1MG TABLET PO ONE (07:45)
[2022-05-24] MEDS: DOCUSATE SODIUM 100MG CAPSULE PO SCH ×2 (10:05→20:18)
[2022-05-24] MEDS: CLOPIDOGREL 75 MG TAB PO SCH (10:05)
[2022-05-24] MEDS: ATORVASTATIN 20 MG TAB PO SCH (10:05)
[2022-05-24] MEDS: ISOSORBIDE DIN. (ISORDIL) 20 MG TAB PO SCH ×3 (10:07→20:18)
[2022-05-24] MEDS ORDERED: SPIRONOLACTONE 25 MG TAB PO ONE (10:30)
[2022-05-24] MEDS: FERROUS SULFATE 325MG TAB PO SCH (10:41)
[2022-05-24] MEDS: **hydrALAZINE** 50 MG TAB PO SCH ×3 (13:04→23:56)
[2022-05-24] MEDS: ASPIRIN 81MG ENTERIC TABLET PO SCH (20:18)
[2022-05-24] MEDS: AMITRIPTYLINE 50 MG TAB PO SCH (20:18)
[2022-05-24] MEDS: TERAZOSIN 5MG CAPSULE PO SCH (20:19)
[2022-05-25] MEDS: HEPARIN SOD (PORCINE) 5000UNITS/ML 1ML VIAL/SYRINGE SC SCH ×3 (05:21→21:06)
[2022-05-25] MEDS: **hydrALAZINE** 50 MG TAB PO SCH ×4 (05:22→23:51)
[2022-05-25 06:00] VITALS: BP 131/84
[2022-05-25 06:20] LABS: BASO # 0.1 10^3/uL (0.0-0.2); BASO % 0.9 % (0.0-1.0); EOS # 0.2 10^3/uL (0.0-0.5); EOS % 2.7 % (0.0-3.0); HEMATOCRIT 28.9 % (42.0-52.0); HEMOGLOBIN 9.1 g/dl (13.5-17.5); LYMPH # 1.5 10^3/uL (1.5-5.0); LYMPH % 22.5 % (24.0-44.0); MEAN CORPUSCULAR HEMOGLOBIN 24.6 pg (27.0-33.0); MEAN CORPUSCULAR HGB CONC 31.5 g/dl (32.0-36.5); MEAN CORPUSCULAR VOLUME 78.1 fl (80.0-96.0); MONO # 0.5 10^3/uL (0.0-0.8); MONO % 6.7 % (2.0-8.0); NEUTROPHILS # 4.5 10^3/uL (1.5-8.5); NEUTROPHILS % 66.9 % (36.0-66.0); PLATELET COUNT, AUTOMATED 167 10^3/uL (150-450); WHITE BLOOD COUNT 6.7 10^3/uL (4.0-10.0)
[2022-05-25 06:40] LABS: BLOOD UREA NITROGEN 17 MG/DL (7-18); CALCIUM LEVEL 8.8 MG/DL (8.8-10.2); CARBON DIOXIDE LEVEL 25 MEQ/L (21-32); CHLORIDE LEVEL 109 MEQ/L (98-107); CREATININE FOR GFR 1.22 MG/DL (0.70-1.30); GLOMERULAR FILTRATION RATE > 60.0 (>35); GLUCOSE, FASTING 103 MG/DL (70-100); POTASSIUM SERUM 3.3 MEQ/L (3.5-5.1); SODIUM LEVEL 141 MEQ/L (136-145)
[2022-05-25] MEDS: INSULIN LISPRO (NovoLOG) PER UNIT SC SCH ×4 (07:30→21:00)
[2022-05-25] MEDS ORDERED: POTASSIUM CHLORIDE 10MEQ SR TABLET PO ONE (08:05)
[2022-05-25] MEDS ORDERED: ISOS30TAB PO (08:07)
[2022-05-25] MEDS ORDERED: HYDR50TA PO (08:07)
[2022-05-25] MEDS ORDERED: SELF1KIT MC (08:11)
[2022-05-25] MEDS: ISOSORBIDE DIN. (ISORDIL) 30 MG TAB PO SCH ×2 (08:45→10:05)
[2022-05-25] MEDS: FERROUS SULFATE 325MG TAB PO SCH (08:57)
[2022-05-25] MEDS: NORCO, ANEXSIA 5/325MG TABLET (HYDROcodone/ACETAMINOPHEN) PO PRN ×2 (08:57→18:00)
[2022-05-25] MEDS: ATORVASTATIN 20 MG TAB PO SCH (08:57)
[2022-05-25] MEDS: CLOPIDOGREL 75 MG TAB PO SCH (08:57)
[2022-05-25] MEDS: DOCUSATE SODIUM 100MG CAPSULE PO SCH ×2 (08:58→21:07)
[2022-05-25] MEDS ORDERED: SPIRONOLACTONE 50 MG TAB PO SCH (09:00)
[2022-05-25 10:00] VITALS: BP 223/90
[2022-05-25 11:07] VITALS: BP 170/80
[2022-05-25] MEDS ORDERED: LOSARTAN 50MG TABLET PO ONE (12:00)
[2022-05-25] MEDS ORDERED: FLUBLOK(EGG FREE)(QUAD)INFLUENZA VACC 0.5ML SYRINGE 18YRS & OLDER IM.IMMUN ONE (12:00)
[2022-05-25] MEDS ORDERED: cloNIDine 0.1MG TABLET PO ONE (13:05)
[2022-05-25] MEDS ORDERED: HYDR100T PO (13:06)
[2022-05-25] MEDS ORDERED: LABETALOL 100MG/20ML VIAL IV STA (13:21)
[2022-05-25 13:39] VITALS: BP 207/117
[2022-05-25] MEDS ORDERED: ISOSORBIDE DIN. (ISORDIL) 20 MG TAB PO SCH (14:00)
[2022-05-25] MEDS: hydrALAZINE 20MG/ML 1ML VIAL (J0360 PER 20MG) IV SCH ×2 (14:19→17:50)
[2022-05-25 16:00] VITALS: BP 180/88
[2022-05-25] MEDS ORDERED: **hydrALAZINE** 50 MG TAB PO SCH (16:00)
[2022-05-25] MEDS: cloNIDine 0.1MG TABLET PO SCH ×2 (17:48→23:51)
[2022-05-25 20:00] VITALS: BP 162/90
[2022-05-25] MEDS ORDERED: LOSARTAN 50MG TABLET PO SCH (21:00)
[2022-05-25] MEDS: TERAZOSIN 5MG CAPSULE PO SCH (21:07)
[2022-05-25] MEDS: ASPIRIN 81MG ENTERIC TABLET PO SCH (21:07)
[2022-05-25] MEDS: ISOSORBIDE DIN. (ISORDIL) 20 MG TAB PO SCH (21:07)
[2022-05-25] MEDS: AMITRIPTYLINE 50 MG TAB PO SCH (21:14)
[2022-05-26] VITALS (7 sets, daily range): BP systolic 130–188; BP diastolic 62–93
[2022-05-26] MEDS: HEPARIN SOD (PORCINE) 5000UNITS/ML 1ML VIAL/SYRINGE SC SCH ×3 (06:02→21:38)
[2022-05-26] MEDS: **hydrALAZINE** 50 MG TAB PO SCH ×5 (06:02→21:38)
[2022-05-26] MEDS: ISOSORBIDE DIN. (ISORDIL) 20 MG TAB PO SCH (06:03)
[2022-05-26 06:04] LABS: BASO # 0.1 10^3/uL (0.0-0.2); BASO % 1.1 % (0.0-1.0); EOS # 0.2 10^3/uL (0.0-0.5); EOS % 3.3 % (0.0-3.0); HEMATOCRIT 28.3 % (42.0-52.0); HEMOGLOBIN 8.7 g/dl (13.5-17.5); LYMPH # 1.2 10^3/uL (1.5-5.0); LYMPH % 20.2 % (24.0-44.0); MEAN CORPUSCULAR HEMOGLOBIN 24.1 pg (27.0-33.0); MEAN CORPUSCULAR HGB CONC 30.7 g/dl (32.0-36.5); MEAN CORPUSCULAR VOLUME 78.4 fl (80.0-96.0); MONO # 0.5 10^3/uL (0.0-0.8); NEUTROPHILS # 4.1 10^3/uL (1.5-8.5); NEUTROPHILS % 67.1 % (36.0-66.0); PLATELET COUNT, AUTOMATED 164 10^3/uL (150-450); RED BLOOD COUNT 3.61 10^6/uL (4.30-6.10); WHITE BLOOD COUNT 6.2 10^3/uL (4.0-10.0)
[2022-05-26] MEDS: cloNIDine 0.1MG TABLET PO SCH ×3 (06:04→17:09)
[2022-05-26 06:46] LABS: BLOOD UREA NITROGEN 21 MG/DL (7-18); CALCIUM LEVEL 8.8 MG/DL (8.8-10.2); CARBON DIOXIDE LEVEL 21 MEQ/L (21-32); CHLORIDE LEVEL 114 MEQ/L (98-107); GLOMERULAR FILTRATION RATE > 60.0 (>35); GLUCOSE, FASTING 134 MG/DL (70-100); SODIUM LEVEL 143 MEQ/L (136-145)
[2022-05-26] MEDS: INSULIN LISPRO (NovoLOG) PER UNIT SC SCH ×4 (07:30→21:00)
[2022-05-26] MEDS ORDERED: ISOSORBIDE MON. (IMDUR) 60MG XR TAB PO ONE (07:30)
[2022-05-26] MEDS: FERROUS SULFATE 325MG TAB PO SCH (09:11)
[2022-05-26] MEDS: ATORVASTATIN 20 MG TAB PO SCH (09:11)
[2022-05-26] MEDS: DOCUSATE SODIUM 100MG CAPSULE PO SCH ×2 (09:11→21:38)
[2022-05-26] MEDS: CLOPIDOGREL 75 MG TAB PO SCH (09:11)
[2022-05-26] MEDS ORDERED: LOSARTAN 50MG TABLET PO SCH (21:00)
[2022-05-26] MEDS: AMITRIPTYLINE 50 MG TAB PO SCH (21:38)
[2022-05-26] MEDS: ASPIRIN 81MG ENTERIC TABLET PO SCH (21:38)
[2022-05-26] MEDS: TERAZOSIN 5MG CAPSULE PO SCH (21:40)
[2022-05-27 00:28] VITALS: BP_SYST 185; BP_SYST 186; BP_DIAS 98
[2022-05-27] MEDS: cloNIDine 0.1MG TABLET PO SCH ×2 (00:30→05:58)
[2022-05-27] MEDS: HEPARIN SOD (PORCINE) 5000UNITS/ML 1ML VIAL/SYRINGE SC SCH (05:58)
[2022-05-27 06:08] LABS: BASO # 0.1 10^3/uL (0.0-0.2); BASO % 1.6 % (0.0-1.0); EOS # 0.3 10^3/uL (0.0-0.5); EOS % 3.7 % (0.0-3.0); HEMATOCRIT 33.5 % (42.0-52.0); HEMOGLOBIN 9.9 g/dl (13.5-17.5); LYMPH # 1.7 10^3/uL (1.5-5.0); LYMPH % 24.7 % (24.0-44.0); MEAN CORPUSCULAR HGB CONC 29.6 g/dl (32.0-36.5); MEAN CORPUSCULAR VOLUME 81.3 fl (80.0-96.0); MONO # 0.5 10^3/uL (0.0-0.8); NEUTROPHILS # 4.2 10^3/uL (1.5-8.5); NEUTROPHILS % 61.7 % (36.0-66.0); PLATELET COUNT, AUTOMATED 202 10^3/uL (150-450); RED BLOOD COUNT 4.12 10^6/uL (4.30-6.10); WHITE BLOOD COUNT 6.8 10^3/uL (4.0-10.0)
[2022-05-27 06:37] VITALS: BP 138/80
[2022-05-27 06:40] LABS: CALCIUM LEVEL 9.3 MG/DL (8.8-10.2); CREATININE FOR GFR 1.32 MG/DL (0.70-1.30); GLOMERULAR FILTRATION RATE 55.6 (>35); POTASSIUM SERUM 3.7 MEQ/L (3.5-5.1)
[2022-05-27] MEDS ORDERED: NS 1,000 ML IV SCH (08:00)
[2022-05-27] MEDS ORDERED: ISOSORBIDE MON. (IMDUR) 60MG XR TAB PO SCH (09:00)
[2022-05-27] MEDS ORDERED: CLONI1TA PO (09:05)
[2022-05-27] MEDS ORDERED: ISOS1TAB36 PO (09:05)
[2022-05-27] MEDS ORDERED: HYDR50TA PO (09:05)
[2022-05-27] MEDS ORDERED: SELF1KIT MC (09:13)
[2022-05-27] MEDS: ATORVASTATIN 20 MG TAB PO SCH (09:15)
[2022-05-27 09:16] VITALS: BP 182/98
[2022-05-27] MEDS: **hydrALAZINE** 50 MG TAB PO SCH (09:16)
[2022-05-27] MEDS: DOCUSATE SODIUM 100MG CAPSULE PO SCH (09:17)
[2022-05-27] MEDS: FERROUS SULFATE 325MG TAB PO SCH (09:17)
[2022-05-27] MEDS: CLOPIDOGREL 75 MG TAB PO SCH (09:17)
== END 2022-05-27 10:24 | disposition left against medical advice (07) | DRG 305 ==
LOC: M ED 17:36 → M ED INP 21:58 → M ICU 23:55 → M MSPAV 05-24 23:18 → M PCU 05-25 13:43 → M MSPAV 05-26 17:50
PROVIDERS: ADMIT Internal Medicine; ATTEND General Practice
DX: I16.1 Hypertensive emergency (principal); N17.9 Acute kidney failure, unspecified; K92.1 Melena; Z66 Do not resuscitate; I10 Essential (primary) hypertension; E11.9 Type 2 diabetes mellitus without complications; F41.1 Generalized anxiety disorder; I25.10 Atherosclerotic heart disease of native coronary artery without angina pectoris; G71.00 Muscular dystrophy, unspecified; Z95.5 Presence of coronary angioplasty implant and graft; E29.0 Testicular hyperfunction; N40.0 Benign prostatic hyperplasia without lower urinary tract symptoms; M10.9 Gout, unspecified; M54.9 Dorsalgia, unspecified; G89.29 Other chronic pain; I65.23 Occlusion and stenosis of bilateral carotid arteries; Z87.891 Personal history of nicotine dependence; Z91.14 Patient's other noncompliance with medication regimen; Z20.822 Contact with and (suspected) exposure to COVID-19; Z79.82 Long term (current) use of aspirin; Z79.84 Long term (current) use of oral hypoglycemic drugs; Z79.899 Other long term (current) drug therapy; E87.6 Hypokalemia; Z91.199 Patient's noncompliance with other medical treatment and regimen due to unspecified reason; E78.5 Hyperlipidemia, unspecified

== ENCOUNTER → 2022-06-26 | Outpatient (REF) | payer MEDICARE ==
[~2022-06-26] MED LIST changes: +CLONI1TA PO; +DOCU100C16 PO; +FERR1TAB8 PO; +HYDR50TA PO; +ISOS1TAB36 PO; +ISOS30TAB PO; +SELF1KIT MC
[2022-06-26 13:46] LABS: HEMATOCRIT 30.5 % (42.0-52.0); HEMOGLOBIN 9.3 g/dl (13.5-17.5); MEAN CORPUSCULAR HEMOGLOBIN 25.1 pg (27.0-33.0); MEAN CORPUSCULAR HGB CONC 30.5 g/dl (32.0-36.5); MEAN CORPUSCULAR VOLUME 82.4 fl (80.0-96.0); PLATELET COUNT, AUTOMATED 228 10^3/uL (150-450); WHITE BLOOD COUNT 10.1 10^3/uL (4.0-10.0)
[2022-06-26 14:11] LABS: POTASSIUM SERUM 3.8 MMOL/L (3.5-5.1)
[2022-06-26 14:12] LABS: ALBUMIN 3.4 G/DL (3.2-5.2)
[2022-06-26 14:18] LABS: BILIRUBIN,TOTAL 0.2 MG/DL (0.3-1.2); CREATININE FOR GFR 1.66 MG/DL (0.70-1.30); GLOMERULAR FILTRATION RATE 42.6 (>35)
[2022-06-26 14:19] LABS: CHOLESTEROL RISK RATIO 2.79 (<5); HDL CHOLESTEROL 40.5 MG/DL (>40); LDL CHOLESTEROL 58.1 MG/DL (<100); PERCENT SATURATION 9.6 % (19.7-50.0); TOTAL PROTEIN 6.2 G/DL (5.7-8.2)
[2022-06-26 14:21] LABS: FERRITIN 16.4 NG/ML (10.5-307.3)
[2022-06-26 15:34] LABS: HEMOGLOBIN A1c 5.6 % (4.0-6.0)
== END ==
LOC: M SFHCADAM 09:43
PROVIDERS: ATTEND Family Medicine
DX: D50.0 Iron deficiency anemia secondary to blood loss (chronic) (principal); E11.9 Type 2 diabetes mellitus without complications; I11.9 Hypertensive heart disease without heart failure; E78.2 Mixed hyperlipidemia

== ENCOUNTER → 2022-12-26 | Outpatient (CLI) | payer MEDICARE ==
[~2022-12-26] MED LIST changes: -LOSA100T45 PO; +LOSA100T46 PO
== END ==
LOC: M ADAMS 13:42
PROVIDERS: ATTEND Family Medicine
DX: M17.11 Unilateral primary osteoarthritis, right knee (principal)

== ENCOUNTER → 2022-12-26 | Outpatient (REF) | payer MEDICARE ==
[2022-12-26 17:06] LABS: HEMATOCRIT 32.1 % (42.0-52.0); MEAN CORPUSCULAR HEMOGLOBIN 26.2 pg (27.0-33.0); MEAN CORPUSCULAR HGB CONC 31.2 g/dl (32.0-36.5); MEAN CORPUSCULAR VOLUME 84.3 fl (80.0-96.0); PLATELET COUNT, AUTOMATED 223 10^3/uL (150-450); RED BLOOD COUNT 3.81 10^6/uL (4.30-6.10); WHITE BLOOD COUNT 7.3 10^3/uL (4.0-10.0)
[2022-12-26 17:24] LABS: URIC ACID 5.4 MG/DL (3.7-9.2)
[2022-12-26 17:27] LABS: THYROID STIMULATING HORMONE 2.572 uIU/ML (0.55-4.78)
[2022-12-26 17:28] LABS: ALBUMIN 3.8 G/DL (3.2-5.2); BILIRUBIN,TOTAL 0.3 MG/DL (0.3-1.2); CALCIUM LEVEL 8.3 MG/DL (8.3-10.6); CHOLESTEROL RISK RATIO 2.55 (<5); CREATININE FOR GFR 1.43 MG/DL (0.70-1.30); FERRITIN 9.6 NG/ML (10.5-307.3); GLOMERULAR FILTRATION RATE 50.5 (>35); HDL CHOLESTEROL 46.9 MG/DL (>40); LDL CHOLESTEROL 44.9 MG/DL (<100); NON-HDL-C 73.1 MG/DL; PERCENT SATURATION 8.7 % (19.7-50.0); POTASSIUM SERUM 3.9 MMOL/L (3.5-5.1); TOTAL PROTEIN 6.3 G/DL (5.7-8.2)
[2022-12-26 17:29] LABS: FOLATE 13.41 NG/ML (>5.4)
[2022-12-26 17:31] LABS: FREE T4 1.11 NG/DL (0.89-1.76)
[2022-12-26 18:14] LABS: HEMOGLOBIN A1c 6.2 % (4.0-6.0)
== END ==
LOC: M SFHCADAM 13:32
PROVIDERS: ATTEND Family Medicine
DX: I11.9 Hypertensive heart disease without heart failure (principal); D50.0 Iron deficiency anemia secondary to blood loss (chronic); M10.9 Gout, unspecified; E11.9 Type 2 diabetes mellitus without complications; I25.10 Atherosclerotic heart disease of native coronary artery without angina pectoris; E78.5 Hyperlipidemia, unspecified

== ENCOUNTER → 2023-06-11 | Outpatient (CLI) | payer MEDICARE | LOC: M RAD 15:12 | PROVIDERS: ATTEND Family Medicine | DX: R59.0 Localized enlarged lymph nodes (principal) ==

== ENCOUNTER → 2023-08-12 | Outpatient (CLI) | payer MEDICARE | LOC: M SOG 08:20 | PROVIDERS: ATTEND Orthopaedic Surgery | DX: Z53.9 Procedure and treatment not carried out, unspecified reason (principal) ==

== ENCOUNTER → 2023-08-16 | Outpatient (CLI) | payer MEDICARE ==
[~2023-08-16] MED LIST changes: -HYDR-3911 PO; -HYDR50TA PO; +HYDR50TA46 PO; +HYDR50TA47 PO
== END ==
LOC: M SOG 07:57
PROVIDERS: ATTEND Orthopaedic Surgery
DX: M17.11 Unilateral primary osteoarthritis, right knee (principal)

== ENCOUNTER → 2023-08-27 | Outpatient (REF) | payer MEDICARE ==
[2023-08-27 16:34] LABS: HEMATOCRIT 33.6 % (42.0-52.0); HEMOGLOBIN 10.7 g/dl (13.5-17.5); MEAN CORPUSCULAR HEMOGLOBIN 28.3 pg (27.0-33.0); MEAN CORPUSCULAR HGB CONC 31.8 g/dl (32.0-36.5); MEAN CORPUSCULAR VOLUME 88.9 fl (80.0-96.0); PLATELET COUNT, AUTOMATED 218 10^3/uL (150-450); RED BLOOD COUNT 3.78 10^6/uL (4.30-6.10); WHITE BLOOD COUNT 9.4 10^3/uL (4.0-10.0)
[2023-08-27 17:01] LABS: ALBUMIN 3.9 G/DL (3.2-5.2); BILIRUBIN,TOTAL 0.4 MG/DL (0.3-1.2); CALCIUM LEVEL 9.8 MG/DL (8.3-10.6); CHOLESTEROL RISK RATIO 2.62 (<5); CREATININE FOR GFR 1.74 MG/DL (0.70-1.30); FERRITIN 21.2 NG/ML (10.5-307.3); GLOMERULAR FILTRATION RATE 40.2 (>35); HDL CHOLESTEROL 45.3 MG/DL (>40); LDL CHOLESTEROL 51.3 MG/DL (<100); NON-HDL-C 73.7 MG/DL; POTASSIUM SERUM 3.9 MMOL/L (3.5-5.1); TOTAL PROTEIN 6.7 G/DL (5.7-8.2)
[2023-08-27 17:35] LABS: HEMOGLOBIN A1c 6.4 % (4.0-6.0)
== END ==
LOC: M SFHCADAM 14:54
PROVIDERS: ATTEND Family Medicine
DX: D50.0 Iron deficiency anemia secondary to blood loss (chronic) (principal); R31.29 Other microscopic hematuria; E11.22 Type 2 diabetes mellitus with diabetic chronic kidney disease; E78.5 Hyperlipidemia, unspecified

== ENCOUNTER → 2023-12-12 | Outpatient (REF) | payer MEDICARE ==
[~2023-12-12] MED LIST changes: -ASPI-161 PO; +ASPI-615 PO; -MIRA1POW3 PO; +MIRA33506 PO
[2023-12-12 14:24] LABS: HEMATOCRIT 30.6 % (42.0-52.0); HEMOGLOBIN 9.7 g/dl (13.5-17.5); MEAN CORPUSCULAR HEMOGLOBIN 29.3 pg (27.0-33.0); MEAN CORPUSCULAR HGB CONC 31.7 g/dl (32.0-36.5); MEAN CORPUSCULAR VOLUME 92.4 fl (80.0-96.0); PLATELET COUNT, AUTOMATED 211 10^3/uL (150-450); RED BLOOD COUNT 3.31 10^6/uL (4.30-6.10); WHITE BLOOD COUNT 8.7 10^3/uL (4.0-10.0)
[2023-12-12 14:40] LABS: HEMOGLOBIN A1c 5.8 % (4.0-6.0)
[2023-12-12 14:48] LABS: URIC ACID 5.9 MG/DL (3.7-9.2)
[2023-12-12 14:52] LABS: ALBUMIN 3.2 G/DL (3.2-5.2); BILIRUBIN,TOTAL 0.4 MG/DL (0.3-1.2); CHOLESTEROL RISK RATIO 2.69 (<5); CREATININE FOR GFR 1.66 MG/DL (0.70-1.30); FERRITIN 30.3 NG/ML (10.5-307.3); GLOMERULAR FILTRATION RATE 42.4 (>35); HDL CHOLESTEROL 44.9 MG/DL (>40); LDL CHOLESTEROL 59.3 MG/DL (<100); NON-HDL-C 76.1 MG/DL; POTASSIUM SERUM 3.9 MMOL/L (3.5-5.1); TOTAL PROTEIN 5.8 G/DL (5.7-8.2)
== END ==
LOC: M SFHCADAM 09:56
PROVIDERS: ATTEND Family Medicine
DX: I11.9 Hypertensive heart disease without heart failure (principal); K22.11 Ulcer of esophagus with bleeding; E11.22 Type 2 diabetes mellitus with diabetic chronic kidney disease; E78.2 Mixed hyperlipidemia; M10.9 Gout, unspecified

== ENCOUNTER → 2024-10-27 | Outpatient (REF) | payer MEDICARE ==
[2024-10-27 18:31] LABS: HEMATOCRIT 40.7 % (42.0-52.0); HEMOGLOBIN 13.2 g/dl (13.5-17.5); MEAN CORPUSCULAR HEMOGLOBIN 28.2 pg (27.0-33.0); MEAN CORPUSCULAR HGB CONC 32.4 g/dl (32.0-36.5); PLATELET COUNT, AUTOMATED 209 10^3/uL (150-450); RED BLOOD COUNT 4.68 10^6/uL (4.30-6.10); WHITE BLOOD COUNT 11.8 10^3/uL (4.0-10.0)
[2024-10-27 19:01] LABS: ALBUMIN 4.1 G/DL (3.2-5.2); BILIRUBIN,TOTAL 0.4 MG/DL (0.3-1.2); CALCIUM LEVEL 9.6 MG/DL (8.3-10.6); CHOLESTEROL RISK RATIO 2.76 (<5); CREATININE FOR GFR 1.65 MG/DL (0.70-1.30); GLOMERULAR FILTRATION RATE 42.6 (>35); HDL CHOLESTEROL 44.5 MG/DL (>40); LDL CHOLESTEROL 52.1 MG/DL (<100); NON-HDL-C 78.5 MG/DL; PERCENT SATURATION 14.6 % (19.7-50.0); POTASSIUM SERUM 3.6 MMOL/L (3.5-5.1); TOTAL PROTEIN 7.4 G/DL (5.7-8.2)
[2024-10-27 19:03] LABS: FERRITIN 26.4 NG/ML (10.5-307.3); FREE T4 1.25 NG/DL (0.89-1.76)
[2024-10-27 19:04] LABS: THYROID STIMULATING HORMONE 1.24 uIU/ML (0.55-4.78)
[2024-10-27 19:26] LABS: HEMOGLOBIN A1c 7.7 % (4.0-6.0)
== END ==
LOC: M SFHCADAM 15:08
PROVIDERS: ATTEND Family Medicine
DX: N18.32 Chronic kidney disease, stage 3b (principal); D63.1 Anemia in chronic kidney disease; I11.9 Hypertensive heart disease without heart failure; E78.2 Mixed hyperlipidemia; E11.22 Type 2 diabetes mellitus with diabetic chronic kidney disease